=== PATIENT | female | born 1945 | race Caucasian/White ===

== ENCOUNTER 2017-12-03 12:04 | Inpatient (IN) | payer OTHER ==
[2017-12-03] MEDS: IPRATRPIUM/ALBUTEROL 0.5/2.5MG 3 ML NEBU. NEB ×3 (12:15→20:00)
[2017-12-03] MEDS ORDERED: IPRATRPIUM/ALBUTEROL 0.5/2.5MG 3 ML NEBU. (12:21)
[2017-12-03 12:27] LABS: ADD MAN DIFF? NO
[2017-12-03 12:35] LABS: BASO # 0.1 x10^3/uL (0.0-0.2); BASO % 1 % (0-3); EOS # 0.1 x10^3/uL (0.0-0.7); EOS % 1 % (0-3); HEMATOCRIT 50.2 % (36.0-47.0); HEMOGLOBIN 17.1 g/dL (12.0-15.5); LYMPH # 3.6 x10^3/uL (1.0-4.8); LYMPH % 23 % (24-48); MEAN CORPUSCULAR HEMOGLOBIN 33 pg (25-35); MEAN CORPUSCULAR HGB CONC 34 g/dL (31-37); MEAN CORPUSCULAR VOLUME 97 fL (79-100); MONO # 1.1 x10^3/uL (0.0-1.1); MONO % 7 % (0-9); NEUT # 10.7 x10^3uL (1.8-7.7); NEUT % 69 % (31-73); PLATELET COUNT 543 x10^3/uL (140-400); RED BLOOD COUNT 5.17 x10^6/uL (3.50-5.40); RED CELL DISTRIBUTION WIDTH 13.4 % (11.5-14.5); WHITE BLOOD COUNT 15.7 x10^3/uL (4.0-11.0)
[2017-12-03 12:41] LABS: ANION GAP 10 (6-14); BLOOD UREA NITROGEN 8 mg/dL (7-20); CALCIUM 10.3 mg/dL (8.5-10.1); CARBON DIOXIDE 29 mmol/L (21-32); CHLORIDE 97 mmol/L (98-107); CREATININE 0.8 mg/dL (0.6-1.0); GFR 70.9; GLUCOSE 105 mg/dL (70-99); POTASSIUM 4.1 mmol/L (3.5-5.1); SODIUM 136 mmol/L (136-145)
[2017-12-03 12:47] LABS: ALBUMIN 4.2 g/dL (3.4-5.0); ALK PHOS 88 U/L (46-116); ALT (SGPT) 20 U/L (14-59); AST (SGOT) 14 U/L (15-37); DIRECT BILIRUBIN 0.1 mg/dL (0.0-0.2); LIPASE 175 U/L (73-393); TOTAL BILIRUBIN 0.6 mg/dL (0.2-1.0); TOTAL PROTEIN 8.3 g/dL (6.4-8.2)
[2017-12-03 12:49] LABS: TROPONINI < 0.017 ng/mL (0.000-0.055)
[2017-12-03 12:52] LABS: NT-PRO BNP 252 pg/mL (0-124)
[2017-12-03] MEDS: IOHEXOL 300 MG/ML 100ML VIAL. IV (12:56)
[2017-12-03] MEDS ORDERED: CONTRAST GIVEN MC (13:00)
[2017-12-03] MEDS ORDERED: MORPHINE SULFATE 4 MG/ML DISP.SYRIN. IV ×2 (14:00→16:30)
[2017-12-03] MEDS ORDERED: ONDANSETRON PF 4 MG/2 ML VIAL. IV ×2 (14:00→16:30)
[2017-12-03 15:15] LABS: PROTHROMBIN TIME PATIENT 12.4 SEC (11.7-14.0)
[2017-12-03] MEDS: cefTRIAXone IV Push 1 GM VIAL. IVP (16:23)
[2017-12-03] MEDS ORDERED: hydrALAZINE 20 MG/ML VIAL. IVP (16:30)
[2017-12-03] MEDS ORDERED: DOCUSATE SODIUM 100 MG CAPSULE. PO (16:30)
[2017-12-03] MEDS ORDERED: ALBUTEROL SULFATE 2.5 MG/3 ML NEBU. NEB (16:30)
[2017-12-03] MEDS: NICOTINE 14MG PATCH. TD (19:47)
[2017-12-04 05:01] LABS: ADD MAN DIFF? NO
[2017-12-04 05:07] LABS: BASO % 0 % (0-3); EOS # 0.1 x10^3/uL (0.0-0.7); EOS % 1 % (0-3); HEMOGLOBIN 13.8 g/dL (12.0-15.5); LYMPH # 3.9 x10^3/uL (1.0-4.8); LYMPH % 33 % (24-48); MEAN CORPUSCULAR HEMOGLOBIN 33 pg (25-35); MEAN CORPUSCULAR HGB CONC 34 g/dL (31-37); MEAN CORPUSCULAR VOLUME 97 fL (79-100); MONO # 1.1 x10^3/uL (0.0-1.1); MONO % 10 % (0-9); NEUT # 6.5 x10^3uL (1.8-7.7); NEUT % 55 % (31-73); PLATELET COUNT 406 x10^3/uL (140-400); RED BLOOD COUNT 4.22 x10^6/uL (3.50-5.40); RED CELL DISTRIBUTION WIDTH 13.5 % (11.5-14.5); WHITE BLOOD COUNT 11.7 x10^3/uL (4.0-11.0)
[2017-12-04 05:31] LABS: ANION GAP 12 (6-14); BLOOD UREA NITROGEN 11 mg/dL (7-20); CALCIUM 8.6 mg/dL (8.5-10.1); CARBON DIOXIDE 26 mmol/L (21-32); CHLORIDE 102 mmol/L (98-107); CREATININE 0.8 mg/dL (0.6-1.0); GFR 70.9; GLUCOSE 115 mg/dL (70-99); POTASSIUM 3.6 mmol/L (3.5-5.1); SODIUM 140 mmol/L (136-145)
[2017-12-04] MEDS: IPRATRPIUM/ALBUTEROL 0.5/2.5MG 3 ML NEBU. NEB ×2 (08:02→13:00)
[2017-12-04] MEDS: EPINEPHrine 1 MG/ML VIAL ET (13:00)
[2017-12-04] MEDS: IV RINGERS,LACTATED 1000ML 1,000 ML IV (13:15)
[2017-12-04] MEDS ORDERED: PROPOFOL 20 ML IV (13:26)
[2017-12-04] MEDS ORDERED: traMADol 50 MG TABLET PO (16:00)
[2017-12-04] MEDS: ALBUTEROL SULFATE 2.5 MG/3 ML NEBU. NEB ×2 (16:00→20:48)
[2017-12-04] MEDS ORDERED: NON FORMULARY ITEM (Albuterol Sulfate (Ventolin Hfa Inhaler) 2 PUFF) INH (16:00)
[2017-12-04] MEDS: cefTRIAXone IV Push 1 GM VIAL. IVP (17:37)
[2017-12-04] MEDS: busPIRone 5 MG TABLET. PO ×2 (17:37→20:24)
[2017-12-04] MEDS: traMADol 50 MG TABLET PO (17:43)
[2017-12-04] MEDS: NICOTINE 14MG PATCH. TD (20:22)
[2017-12-04] MEDS: LACTOBACILLUS RHAMNOSUS GG 1 CAPSULE. PO (20:23)
[2017-12-05 05:22] LABS: ADD MAN DIFF? NO
[2017-12-05 05:32] LABS: BASO % 0 % (0-3); EOS # 0.2 x10^3/uL (0.0-0.7); EOS % 2 % (0-3); HEMATOCRIT 40.3 % (36.0-47.0); HEMOGLOBIN 13.5 g/dL (12.0-15.5); LYMPH # 4.1 x10^3/uL (1.0-4.8); LYMPH % 33 % (24-48); MEAN CORPUSCULAR HEMOGLOBIN 33 pg (25-35); MEAN CORPUSCULAR HGB CONC 34 g/dL (31-37); MEAN CORPUSCULAR VOLUME 98 fL (79-100); MONO # 1.1 x10^3/uL (0.0-1.1); MONO % 9 % (0-9); NEUT # 7.1 x10^3uL (1.8-7.7); NEUT % 56 % (31-73); PLATELET COUNT 391 x10^3/uL (140-400); RED BLOOD COUNT 4.13 x10^6/uL (3.50-5.40); RED CELL DISTRIBUTION WIDTH 13.5 % (11.5-14.5); WHITE BLOOD COUNT 12.5 x10^3/uL (4.0-11.0)
[2017-12-05 05:58] LABS: ANION GAP 7 (6-14); BLOOD UREA NITROGEN 7 mg/dL (7-20); CALCIUM 8.9 mg/dL (8.5-10.1); CARBON DIOXIDE 30 mmol/L (21-32); CHLORIDE 101 mmol/L (98-107); CREATININE 0.7 mg/dL (0.6-1.0); GFR 82.7; GLUCOSE 101 mg/dL (70-99); POTASSIUM 3.8 mmol/L (3.5-5.1); SODIUM 138 mmol/L (136-145)
[2017-12-05] MEDS: ALBUTEROL SULFATE 2.5 MG/3 ML NEBU. NEB ×5 (06:57→20:00)
[2017-12-05] MEDS: LACTOBACILLUS RHAMNOSUS GG 1 CAPSULE. PO ×2 (08:21→20:10)
[2017-12-05] MEDS: busPIRone 5 MG TABLET. PO ×4 (08:22→20:10)
[2017-12-05] MEDS: traMADol 50 MG TABLET PO ×2 (08:22→17:46)
[2017-12-05] MEDS: ENOXAPARIN 40 MG/0.4 ML SYRINGE. SQ (13:41)
[2017-12-05] MEDS: ACETAMINOPHEN 325 MG TABLET. PO (13:42)
[2017-12-05] MEDS ORDERED: IOHEXOL 300 MG/ML 100ML VIAL. IV (15:00)
[2017-12-05] MEDS ORDERED: CONTRAST GIVEN MC (15:00)
[2017-12-05] MEDS: cefTRIAXone IV Push 1 GM VIAL. IVP (17:46)
[2017-12-06 06:09] LABS: ADD MAN DIFF? NO
[2017-12-06 06:20] LABS: BASO # 0.1 x10^3/uL (0.0-0.2); BASO % 1 % (0-3); EOS # 0.3 x10^3/uL (0.0-0.7); EOS % 2 % (0-3); HEMATOCRIT 39.5 % (36.0-47.0); HEMOGLOBIN 13.3 g/dL (12.0-15.5); LYMPH # 3.4 x10^3/uL (1.0-4.8); LYMPH % 30 % (24-48); MEAN CORPUSCULAR HEMOGLOBIN 33 pg (25-35); MEAN CORPUSCULAR HGB CONC 34 g/dL (31-37); MEAN CORPUSCULAR VOLUME 98 fL (79-100); MONO % 9 % (0-9); NEUT # 6.4 x10^3uL (1.8-7.7); NEUT % 58 % (31-73); PLATELET COUNT 389 x10^3/uL (140-400); RED BLOOD COUNT 4.03 x10^6/uL (3.50-5.40); RED CELL DISTRIBUTION WIDTH 13.7 % (11.5-14.5); WHITE BLOOD COUNT 11.2 x10^3/uL (4.0-11.0)
[2017-12-06] MEDS ORDERED: LIDOCAINE 1% PF 2 ML VIAL. ID ×2 (07:00→07:30)
[2017-12-06] MEDS ORDERED: MORPHINE SULFATE 2 MG/ML DISP.SYRIN. IV (07:00)
[2017-12-06] MEDS ORDERED: ONDANSETRON PF 4 MG/2 ML VIAL. IV (07:00)
[2017-12-06] MEDS ORDERED: PROCHLORPERAZINE 10 MG/2 ML VIAL. IV (07:00)
[2017-12-06] MEDS ORDERED: fentaNYL PF VIAL 100 MCG/2 ML VIAL IV ×4 (07:00→07:30)
[2017-12-06] MEDS ORDERED: IV RINGERS,LACTATED 1000ML 1,000 ML IV (07:27)
[2017-12-06] MEDS ORDERED: MIDAZOLAM HCL/PF 2 MG/2 ML VIAL. IV (07:30)
[2017-12-06] MEDS: ALBUTEROL SULFATE 2.5 MG/3 ML NEBU. NEB ×4 (08:22→19:46)
[2017-12-06] MEDS ORDERED: PROPOFOL 20 ML IV (08:22)
[2017-12-06] MEDS ORDERED: LIDOCAINE 2% 100 MG/5 ML SYRINGE. (08:22)
[2017-12-06] MEDS: IV RINGERS,LACTATED 1000ML 1,000 ML IV (08:27)
[2017-12-06] MEDS: LACTOBACILLUS RHAMNOSUS GG 1 CAPSULE. PO ×2 (09:47→20:59)
[2017-12-06] MEDS: busPIRone 5 MG TABLET. PO ×4 (09:47→21:00)
[2017-12-06] MEDS: NICOTINE 14MG PATCH. TD (11:14)
[2017-12-06] MEDS ORDERED: EPINEPHrine 1 MG/ML VIAL ET (11:45)
[2017-12-06] MEDS: ENOXAPARIN 40 MG/0.4 ML SYRINGE. SQ (13:00)
[2017-12-06] MEDS: traMADol 50 MG TABLET PO (13:12)
[2017-12-06] MEDS: cefTRIAXone IV Push 1 GM VIAL. IVP (16:31)
[2017-12-07 04:38] LABS: ALBUMIN 2.9 g/dL (3.4-5.0); ALBUMIN/GLOBULIN RATIO 0.8 (1.0-1.7); ALK PHOS 87 U/L (46-116); ALT (SGPT) 39 U/L (14-59); ANION GAP 8 (6-14); AST (SGOT) 30 U/L (15-37); BLOOD UREA NITROGEN 9 mg/dL (7-20); BUN/CREATININE RATIO 13 (6-20); CALCIUM 8.7 mg/dL (8.5-10.1); CARBON DIOXIDE 28 mmol/L (21-32); CHLORIDE 102 mmol/L (98-107); CREATININE 0.7 mg/dL (0.6-1.0); GFR 82.7; GLUCOSE 102 mg/dL (70-99); POTASSIUM 3.9 mmol/L (3.5-5.1); SODIUM 138 mmol/L (136-145); TOTAL BILIRUBIN 0.2 mg/dL (0.2-1.0); TOTAL PROTEIN 6.6 g/dL (6.4-8.2)
[2017-12-07] MEDS: ALBUTEROL SULFATE 2.5 MG/3 ML NEBU. NEB ×2 (07:54→11:50)
[2017-12-07] MEDS: LACTOBACILLUS RHAMNOSUS GG 1 CAPSULE. PO (08:51)
[2017-12-07] MEDS: busPIRone 5 MG TABLET. PO ×2 (08:51→12:54)
[2017-12-07] MEDS: traMADol 50 MG TABLET PO (08:54)
[2017-12-07] MEDS: NICOTINE 14MG PATCH. TD (11:59)
[2017-12-07] MEDS: ENOXAPARIN 40 MG/0.4 ML SYRINGE. SQ (13:00)
[2017-12-10 06:26] LABS: T-SPOT TB TEST(OXFORD) SEE SEPARATE REPORT
== END 2017-12-07 16:45 | disposition home health service (06) | DRG 853 ==
LOC: ER 12:04 → 5 NORTH 13:55
PROC: 0B9C8ZX Drainage of Right Upper Lung Lobe, Via Natural or Artificial Opening Endoscopic, Diagnostic (ICD-10-PCS; principal; 2017-12-04 13:35)
PROC: 0BDC8ZX Extraction of Right Upper Lung Lobe, Via Natural or Artificial Opening Endoscopic, Diagnostic (ICD-10-PCS; 2017-12-04 13:35)
DX: A41.9 Sepsis, unspecified organism (principal); J96.01 Acute respiratory failure with hypoxia; J18.9 Pneumonia, unspecified organism; T17.590A Other foreign object in bronchus causing asphyxiation, initial encounter; K50.90 Crohn's disease, unspecified, without complications; J44.0 Chronic obstructive pulmonary disease with (acute) lower respiratory infection; C34.11 Malignant neoplasm of upper lobe, right bronchus or lung; J44.1 Chronic obstructive pulmonary disease with (acute) exacerbation; J93.9 Pneumothorax, unspecified; J98.19 Other pulmonary collapse; J40 Bronchitis, not specified as acute or chronic; F17.210 Nicotine dependence, cigarettes, uncomplicated; Z80.0 Family history of malignant neoplasm of digestive organs; Z82.49 Family history of ischemic heart disease and other diseases of the circulatory system; Z86.73 Personal history of transient ischemic attack (TIA), and cerebral infarction without residual deficits
CPT/HCPCS: 31622; 36415; 70470; 71045; 71260; 80048; 80053; 80076; 83690; 83880; 84484; 85025; 85610; 86481; 88112; 88305; 93005; 94060; 94618; 94640; 94760; 97161-GP; 97165-GO; 99406; J0696; J1650; J2704; J7120; J7613; J7620; Q9967

== ENCOUNTER → 2017-12-13 | Outpatient (CLI) | payer OTHER | END | disposition home or self-care (01) | LOC: PETSC 09:42 | DX: C34.91 Malignant neoplasm of unspecified part of right bronchus or lung (principal); K57.30 Diverticulosis of large intestine without perforation or abscess without bleeding | CPT/HCPCS: 78815; A9552 ==

== ENCOUNTER → 2018-04-04 | Outpatient (CLI) | payer OTHER | END | disposition home or self-care (01) | LOC: CT 09:57 | DX: C34.11 Malignant neoplasm of upper lobe, right bronchus or lung (principal); J44.1 Chronic obstructive pulmonary disease with (acute) exacerbation; Z87.891 Personal history of nicotine dependence | CPT/HCPCS: 71250 ==

== ENCOUNTER → 2018-06-26 | Outpatient (CLI) | payer OTHER ==
[2017-12-07 10:53] VITALS: BP 109/59
[~2018-06-26] MED LIST: BUSP15TA PO; IPRA4AER IH; Nicotine 14MG TD; OMEP40CA5 PO; TRAM50TA PO; VENTOLIN HFA18 GM INH
--- NOTE | 2018-06-26 11:45 | KCIC ---
Bilateral digital screening mammograms: Reason for examination: Routine screening. Comparison is made to previous study dated 06/16/2016. Interpretation was made with the benefit of CAD. The skin and nipples show no abnormalities. No abnormal axillary lymph nodes are seen. The breast parenchyma is heterogeneously dense. (Breast density: Category C.) There are no dominant masses, suspicious calcifications or architectural distortion. Impression: No evidence of malignancy. Recommend routine screening. Your patient's mammogram demonstrates that she has dense breast tissue (breast density category C or D), which could hide abnormalities, and if she has other risk factors for breast cancer that have been identified, she might benefit from supplemental screening tests that may be suggested by you as her ordering physician. Dense breast tissue, in and of itself, is a relatively common condition. Therefore, this information is not provided to cause undue concern, but rather to raise your awareness and to promote discussion with your patient regarding the presence of other risk factors, in addition to dense breast tissue. Your patient's mammography results will be sent to her. BI-RAD Category 1: Negative. "Our facility is accredited by the [employer] Mammography [employer]." This patient's information has been entered into a reminder system for the patient to be notified with the results of her examination and a target date for the next mammogram. Electronically signed by: Ann-Marie Batista MD (06/26/2018 11:41 AM) [id number]
--- NOTE | 2018-06-26 13:01 | KCIC ---
Examination: PELVIS W/TV History: Weight loss, lung cancer Comparison/Correlation: None Findings: Transabdominal and transvaginal pelvic ultrasound exam was performed. Transvaginal technique was utilized to better assess the adnexal structures. Uterus measures 6.3 cm x 3.7 cm x 2.4 cm. Endometrial thickness is 0.6 cm. Myometrium is normal. Fluid is noted within the endometrial cavity measuring 0.5 cm x 2 cm x 2 cm. There is no pelvic free fluid. Ovaries are not identified. Impression: Fluid within the endometrial cavity is present. No mass delineated. No adnexal mass. Ovaries are not identified and are presumably atrophic. Electronically signed by: Ronan De León MD (06/26/2018 12:58 PM) [facility]
--- NOTE | 2018-06-26 13:33 | KCIC ---
Complete abdominal ultrasound History: Weight loss. Abdominal pain. Lung cancer. Comparison: None. Procedure: Transabdominal ultrasound images are obtained. Findings: Visualized pancreas is unremarkable. Liver is normal in echogenicity. No focal hepatic masses are identified. Right lobe of the liver measures 15.3 cm. Gallbladder has an unremarkable appearance. Common bile duct measures normally at 2 mm in diameter. Spleen is homogeneous and measures 8.1 cm in length. Right kidney is normal in size and configuration without hydronephrosis. Junction of the superior pole and interpolar region of the right kidney demonstrates 9 mm echogenic focus. Left kidney is normal in size and configuration without hydronephrosis. Visualized portions of the aorta and IVC have normal caliber. Aortic atherosclerosis is seen. Impression: 1. Right kidney demonstrates 9 mm echogenic lesion involving the cortex. This is nonspecific, but is commonly due to angiomyolipoma. Malignant causes are not excluded. Consider renal mass protocol CT for further evaluation. Electronically signed by: Augustus Garza MD (06/26/2018 1:29 PM) [id number]
--- NOTE | 2018-06-26 15:49 | KCIC ---
Examination: THYROID ULTRASOUND History: Enlarged thyroid, lung cancer, history of radiation Comparison/Correlation: None Findings: Right thyroid lobe measures 6.1 cm and 1.17 x 1.7 cm. Left thyroid lobe measures 5.2 cm x 1.6 cm x 1.6 cm. Thyroid isthmus measures 0.3 cm anteroposterior The left superior pole medially, there is a 0.4 cm diameter cysts. Symmetric flow involving the thyroid gland is noted on color Doppler imaging. Slight heterogeneity of the thyroid gland is suggested. No well-demarcated dominant nodule or mass identified. Impression: No dominant mass. Electronically signed by: Ronan De León MD (06/26/2018 3:45 PM) [facility]
== END | disposition home or self-care (01) ==
LOC: KCIC US 08:40
PROVIDERS: ATTEND Nurse Practitioner
DX: Z12.31 Encounter for screening mammogram for malignant neoplasm of breast (principal); I70.0 Atherosclerosis of aorta; N28.9 Disorder of kidney and ureter, unspecified; J44.9 Chronic obstructive pulmonary disease, unspecified; Z92.3 Personal history of irradiation; Z87.891 Personal history of nicotine dependence; Z85.118 Personal history of other malignant neoplasm of bronchus and lung
CPT/HCPCS: 76536; 76700; 76830; 76856; 77067

== ENCOUNTER → 2018-07-09 | Outpatient (CLI) | payer OTHER ==
[2017-12-07 10:53] VITALS: BP 109/59
[~2018-07-09] MED LIST changes: +CHOL2000 PO; +IOHEXOL 300 MG/ML 100ML VIAL. IV ONE
--- NOTE | 2018-07-09 15:08 | RAD ---
PQRS Compliance Statement: One or more of the following individualized dose reduction techniques were utilized for this examination: 1. Automated exposure control 2. Adjustment of the mA and/or kV according to patient size 3. Use of iterative reconstruction technique CT CHEST W/CONTRAST Clinical Indication: HX OF LUNG cancer. Comparison: CT chest without contrast, April 04, 2018. Technique: Helical CT imaging of the chest is performed after 75 cc Omnipaque 300 IV contrast. Findings: Thyroid is symmetric. No adenopathy in the chest. Stable ectasia of the ascending thoracic aorta. Coronary artery disease. Cardiac size normal. No pericardial effusion. No pleural effusion. Abrupt truncation of the right upper lobe bronchus is unchanged. Right upper lobe consolidation is unchanged. Mild scarring in the left lung apex is unchanged. Retained secretions or mucous in the trachea dependently. Posterior left upper lobe groundglass nodule is stable, image 26. Visualized upper abdomen is stable. Bones are stable. IMPRESSION: There is unchanged truncation of the right upper lobe bronchus. Consolidation in the right upper lobe is unchanged, probably postobstructive atelectasis or pneumonia. Electronically signed by: Hans Borja MD (07/09/2018 3:06 PM) [id number]
== END | disposition home or self-care (01) ==
LOC: CT 09:40
PROVIDERS: ATTEND Radiology Radiation Oncology
DX: I77.810 Thoracic aortic ectasia (principal); I25.10 Atherosclerotic heart disease of native coronary artery without angina pectoris; J44.9 Chronic obstructive pulmonary disease, unspecified; Z79.01 Long term (current) use of anticoagulants; Z87.891 Personal history of nicotine dependence; Z85.118 Personal history of other malignant neoplasm of bronchus and lung
CPT/HCPCS: 71260; Q9967

== ENCOUNTER → 2018-10-16 | Outpatient (CLI) | payer OTHER ==
[2017-12-07 10:53] VITALS: BP 109/59
[~2018-10-16] MED LIST changes: +DIAZ5TAB PO; +PRED20TA PO
[2018-10-16 12:56] LABS: CREATININE 0.8 mg/dL (0.6-1.0); GFR 70.9
--- NOTE | 2018-10-16 15:31 | RAD ---
CT of the chest with contrast 10/16/2018 INDICATION: History of lung cancer. COMPARISON STUDY: CT of the chest July 09, 2018. PET/CT December 13, 2017. TECHNIQUE: Multidetector CT imaging of the chest was performed following the administration of IV contrast. Findings heart size is normal. No pathologically enlarged mediastinal adenopathy is appreciated. Abrupt truncation of the bronchus to the right upper lobe is unchanged. Right upper lobe postobstructive atelectasis is essentially unchanged in morphology. Linear areas of scarring are seen in the bilateral upper lungs. No pneumothorax or pleural effusion is seen. Smudgy groundglass nodule in the left upper lobe along the fissure is unchanged measuring approximately 7 mm in diameter. No new focal consolidative infiltrate is seen. No new pulmonary nodules or masses are identified. Limited visualization of the upper abdomen demonstrates no acute abnormalities. No acute osseous changes are seen. IMPRESSION: 1. Stable CT appearance of the chest. 2 . With respect to comparison study there is stable morphology of the right upper lobe including abrupt truncation of the upper lobe bronchus with postobstructive volume loss. Notably, differentiation of the previously seen hypermetabolic mass in the right hilum, and atelectatic lung may not be possible on the basis of this exam. PET/CT may be helpful for further evaluation as clinically indicated. 3. Stable 7 mm groundglass opacity, left upper lobe CT DOSING PQRS STATEMENT: One or more of the following individualized dose reduction techniques were utilized for this examination: 1. Automated exposure control 2. Adjustment of the mA and/or kV according to patient size 3. Use of iterative reconstruction technique Electronically signed by: Derek Batista MD (10/16/2018 3:27 PM) [id number]
== END | disposition home or self-care (01) ==
LOC: CT 15:19
PROVIDERS: ATTEND Radiology Radiation Oncology
DX: C34.11 Malignant neoplasm of upper lobe, right bronchus or lung (principal); J98.11 Atelectasis; J98.4 Other disorders of lung
CPT/HCPCS: 36415; 71260; 82565; Q9967

== ENCOUNTER 2019-01-08 04:40 | Emergency (ER) | payer OTHER ==
[~2019-01-08] VITALS: Ht 165.1 cm; Wt 43.1 kg
[~2019-01-08 04:40] MED LIST changes: -IOHEXOL 300 MG/ML 100ML VIAL. IV ONE; -PRED20TA PO
--- NOTE | 2019-01-08 04:58 | PHYS DOC ---
Past Medical History Past Medical History: COPD, Other Additional Past Medical Histor: Crohns (BLANCA PRATHER DO) Past Surgical History: No Surgical History (BLANCA PRATHER DO) Alcohol Use: Occasionally Drug Use: None (BLANCA PRATHER DO) Adult General Chief Complaint Chief Complaint: DIFFICULTY SWALLOWING HPI HPI 73-year-old female presents with the inability to swallow. She states this started after eating some small barbosa tomatoes today. She did not aspirate has not been short of breath did not cough. Currently, she is having difficulty tolerating her own saliva. She denies any pain in her chest.[] (BLANCA PRATHER DO) Review of Systems Review of Systems Constitutional: Denies fever or chills [] Eyes: Denies change in visual acuity, redness, or eye pain [] HENT: Denies nasal congestion or sore throat [] Respiratory: Denies cough or shortness of breath [] Cardiovascular: No additional information not addressed in HPI [] GI: Denies abdominal pain, nausea, vomiting, bloody stools or diarrhea, reports dysphagia [] : Denies dysuria or hematuria [] Musculoskeletal: Denies back pain or joint pain [] Integument: Denies rash or skin lesions [] Neurologic: Denies headache, focal weakness or sensory changes [] Endocrine: Denies polyuria or polydipsia [] All other systems were reviewed and found to be within normal limits, except as documented in this note. (BLANCA PRATHER DO) Current Medications Current Medications Current Medications Medications (Trade) Dose Ordered Sig/Yadiel Start Time Stop Time Status Last Admin Dose Admin Glucagon (Glucagen) 1 mg 1X ONCE 01/08/19 05:15 01/08/19 05:17 DC 01/08/19 05:11 1 MG Sodium Chloride 1,000 ml @ 1,000 mls/hr 1X ONCE 01/08/19 05:00 01/08/19 05:59 DC 01/08/19 05:10 1,000 MLS/HR (POLINA RHODES MD) Allergies Allergies Allergies Coded Allergies Type Severity Reaction Last Updated Verified tomato Allergy Severe 01/08/19 Yes Penicillins Allergy Intermediate Unknown 01/08/19 Yes (POLINA RHODES MD) Physical Exam Physical Exam Constitutional: Frail, elderly, acutely ill[] HENT: Normocephalic, atraumatic, bilateral external ears normal, oropharynx moist, no oral exudates, nose normal. [] Eyes: PERRLA, EOMI, conjunctiva normal, no discharge. [] Neck: Normal range of motion, no tenderness, supple, no stridor. [] Cardiovascular:Heart rate regular rhythm, no murmur [] Lungs & Thorax: Bilateral breath sounds clear to auscultation [] Abdomen: Bowel sounds normal, soft, no tenderness, no masses, no pulsatile masses. [] Skin: Warm, dry, no erythema, no rash. [] Back: No tenderness, no CVA tenderness. [] Extremities: No tenderness, no cyanosis, no clubbing, ROM intact, no edema. [] Neurologic: Alert and oriented X 3, normal motor function, normal sensory function, no focal deficits noted. [] Psychologic: Anxious. [] (BLANCA PRATHER DO) Current Patient Data Vital Signs Vital Signs Date Time Temp Pulse Resp B/P (MAP) Pulse Ox O2 Delivery O2 Flow Rate FiO2 01/08/19 05:50 64 16 131/70 (90) 97 Room Air 01/08/19 04:42 97.6 97.6 (POLINA RHODES MD) Lab Values Laboratory Tests Test 01/08/19 05:00 White Blood Count 11.9 x10^3/uL (4.0-11.0) H Red Blood Count 4.57 x10^6/uL (3.50-5.40) Hemoglobin 15.0 g/dL (12.0-15.5) Hematocrit 44.2 % (36.0-47.0) Mean Corpuscular Volume 97 fL (79-100) Mean Corpuscular Hemoglobin 33 pg (25-35) Mean Corpuscular Hemoglobin Concent 34 g/dL (31-37) Red Cell Distribution Width 14.2 % (11.5-14.5) Platelet Count 406 x10^3/uL (140-400) H Neutrophils (%) (Auto) 85 % (31-73) H Lymphocytes (%) (Auto) 9 % (24-48) L Monocytes (%) (Auto) 5 % (0-9) Eosinophils (%) (Auto) 1 % (0-3) Basophils (%) (Auto) 1 % (0-3) Neutrophils # (Auto) 10.0 x10^3uL (1.8-7.7) H Lymphocytes # (Auto) 1.0 x10^3/uL (1.0-4.8) Monocytes # (Auto) 0.6 x10^3/uL (0.0-1.1) Eosinophils # (Auto) 0.1 x10^3/uL (0.0-0.7) Basophils # (Auto) 0.1 x10^3/uL (0.0-0.2) Sodium Level 141 mmol/L (136-145) Potassium Level 3.6 mmol/L (3.5-5.1) Chloride Level 100 mmol/L (98-107) Carbon Dioxide Level 27 mmol/L (21-32) Anion Gap 14 (6-14) Blood Urea Nitrogen 5 mg/dL (7-20) L Creatinine 0.8 mg/dL (0.6-1.0) Estimated GFR (Cockcroft-Gault) 70.7 BUN/Creatinine Ratio 6 (6-20) Glucose Level 117 mg/dL (70-99) H Calcium Level 9.3 mg/dL (8.5-10.1) Total Bilirubin 0.4 mg/dL (0.2-1.0) Aspartate Amino Transferase (AST) 17 U/L (15-37) Alanine Aminotransferase (ALT) 15 U/L (14-59) Alkaline Phosphatase 78 U/L (46-116) Total Protein 8.2 g/dL (6.4-8.2) Albumin 4.3 g/dL (3.4-5.0) Albumin/Globulin Ratio 1.1 (1.0-1.7) Laboratory Tests 01/08/19 05:00 Laboratory Tests 01/08/19 05:00 (POLINA RHODES MD) Lab Values Laboratory Tests Test 01/08/19 05:00 White Blood Count 11.9 x10^3/uL (4.0-11.0) H Red Blood Count 4.57 x10^6/uL (3.50-5.40) Hemoglobin 15.0 g/dL (12.0-15.5) Hematocrit 44.2 % (36.0-47.0) Mean Corpuscular Volume 97 fL (79-100) Mean Corpuscular Hemoglobin 33 pg (25-35) Mean Corpuscular Hemoglobin Concent 34 g/dL (31-37) Red Cell Distribution Width 14.2 % (11.5-14.5) Platelet Count 406 x10^3/uL (140-400) H Neutrophils (%) (Auto) 85 % (31-73) H Lymphocytes (%) (Auto) 9 % (24-48) L Monocytes (%) (Auto) 5 % (0-9) Eosinophils (%) (Auto) 1 % (0-3) Basophils (%) (Auto) 1 % (0-3) Neutrophils # (Auto) 10.0 x10^3uL (1.8-7.7) H Lymphocytes # (Auto) 1.0 x10^3/uL (1.0-4.8) Monocytes # (Auto) 0.6 x10^3/uL (0.0-1.1) Eosinophils # (Auto) 0.1 x10^3/uL (0.0-0.7) Basophils # (Auto) 0.1 x10^3/uL (0.0-0.2) Sodium Level 141 mmol/L (136-145) Potassium Level 3.6 mmol/L (3.5-5.1) Chloride Level 100 mmol/L (98-107) Carbon Dioxide Level 27 mmol/L (21-32) Anion Gap 14 (6-14) Blood Urea Nitrogen 5 mg/dL (7-20) L Creatinine 0.8 mg/dL (0.6-1.0) Estimated GFR (Cockcroft-Gault) 70.7 BUN/Creatinine Ratio 6 (6-20) Glucose Level 117 mg/dL (70-99) H Calcium Level 9.3 mg/dL (8.5-10.1) Total Bilirubin 0.4 mg/dL (0.2-1.0) Aspartate Amino Transferase (AST) 17 U/L (15-37) Alanine Aminotransferase (ALT) 15 U/L (14-59) Alkaline Phosphatase 78 U/L (46-116) Total Protein 8.2 g/dL (6.4-8.2) Albumin 4.3 g/dL (3.4-5.0) Albumin/Globulin Ratio 1.1 (1.0-1.7) Laboratory Tests 01/08/19 05:00 Laboratory Tests 01/08/19 05:00 (BLANCA PRATHER DO) EKG EKG [] (BLANCA PRATHER DO) Radiology/Procedures Radiology/Procedures [] (BLANCA PRATHER DO) Course & Med Decision Making Course & Med Decision Making Pertinent Labs and Imaging studies reviewed. (See chart for details) [ED course: I spoke with Dr. Ford at 05 45 this morning and informed him of details of the case. He states that he began approximately 7 AM and take her to the GI lab. I will let Dr. Rhodes the [facility] emergency medicine physician know the details so she can keep track of the patient up until the time she goes to the GI lab.] (BLANCA PRATHER DO) Course & Med Decision Making I was not involved in the care of this patient. Patient was taking to GI lab.Dr rhodes (POLINA RHODES MD) Dragon Disclaimer Dragon Disclaimer This electronic medical record was generated, in whole or in part, using a voice recognition dictation system. (BLANCA PRATHER DO) Departure Departure Referrals: CAYETANO SHABAZZ DO (PCP) BLANCA PRATHER DO Jan 08, 2019 04:58 POLINA RHODES MD Jan 08, 2019 17:38
[2019-01-08] MEDS ORDERED: IV NORMAL SALINE 1000ML BAG 1,000 ML IV ONE (05:00)
[2019-01-08 05:10] LABS: BASO # 0.1 x10^3/uL (0.0-0.2); BASO % 1 % (0-3); EOS # 0.1 x10^3/uL (0.0-0.7); EOS % 1 % (0-3); HEMATOCRIT 44.2 % (36.0-47.0); LYMPH % 9 % (24-48); MEAN CORPUSCULAR HEMOGLOBIN 33 pg (25-35); MEAN CORPUSCULAR HGB CONC 34 g/dL (31-37); MEAN CORPUSCULAR VOLUME 97 fL (79-100); MONO # 0.6 x10^3/uL (0.0-1.1); MONO % 5 % (0-9); NEUT % 85 % (31-73); PLATELET COUNT 406 x10^3/uL (140-400); RED BLOOD COUNT 4.57 x10^6/uL (3.50-5.40); RED CELL DISTRIBUTION WIDTH 14.2 % (11.5-14.5); WHITE BLOOD COUNT 11.9 x10^3/uL (4.0-11.0)
[2019-01-08] MEDS ORDERED: GLUCAGON,HUMAN RECOMBINANT 1 MG/ML VIAL. IV ONE (05:15)
[2019-01-08 05:21] LABS: CALCIUM 9.3 mg/dL (8.5-10.1); CREATININE 0.8 mg/dL (0.6-1.0); GFR 70.7; POTASSIUM 3.6 mmol/L (3.5-5.1)
[2019-01-08 05:29] LABS: ALBUMIN 4.3 g/dL (3.4-5.0); ALBUMIN/GLOBULIN RATIO 1.1 (1.0-1.7); TOTAL BILIRUBIN 0.4 mg/dL (0.2-1.0); TOTAL PROTEIN 8.2 g/dL (6.4-8.2)
[2019-01-08 05:50] VITALS: BP 131/70
--- NOTE | 2019-01-08 08:01 | RAD ---
CHEST PA LATERAL History: difficulty swallowing Comparison: 12/03/2017 AP view of the chest, 10/16/2018 CT chest with contrast. Findings: The cardiomediastinal silhouette is normal. Pulmonary hyperinflation noted. Pulmonary vasculature is normal. Right medial upper lung field opacity corresponding to atelectasis on the recent chest CT noted. No pleural effusion or pneumothorax is seen. There is no acute bone abnormality. Osteopenia noted. IMPRESSION: Slight decrease in right upper lobe, apical atelectasis upon correlation with recent CT examination. COPD. No new infiltrate. Electronically signed by: Ronan De León MD (01/08/2019 7:59 AM) [facility]
[2019-01-10] MEDS ORDERED: PRED20TA PO (12:29)
== END 2019-01-08 06:20 | disposition home or self-care (01) ==
LOC: ER 04:40
DX: R13.0 Aphagia (principal); J44.9 Chronic obstructive pulmonary disease, unspecified; Z88.0 Allergy status to penicillin; Z91.018 Allergy to other foods
CPT/HCPCS: 36415; 71046; 80053; 85025; 96374; J1610; J7030; 99284-25

== ENCOUNTER 2019-01-08 06:30 | Inpatient (IN) | payer OTHER ==
[~2019-01-08] VITALS: Ht 165.1 cm; Wt 43.1 kg
[2019-01-08] MEDS ORDERED: LIDOCAINE 1% PF 2 ML VIAL. ID PRN (06:45)
[2019-01-08] MEDS ORDERED: IV RINGERS,LACTATED 1000ML 1,000 ML IV SCH (06:45)
[2019-01-08] MEDS ORDERED: fentaNYL PF VIAL 100 MCG/2 ML VIAL IV PRN ×2 (06:45)
[2019-01-08] MEDS ORDERED: MIDAZOLAM HCL/PF 2 MG/2 ML VIAL. IV PRN (06:45)
[2019-01-08] MEDS ORDERED: LIDOCAINE 2% PF 5 ML VIAL. ONE (06:57)
[2019-01-08] MEDS ORDERED: PROPOFOL 20 ML IV ONE (06:57)
[2019-01-08] MEDS ORDERED: diphenhydrAMINE 50 MG/ML VIAL IVP ONE (08:30)
[2019-01-08] MEDS: FAMOTIDINE 20 MG/2 ML VIAL IVP SCH ×2 (08:30→09:27)
[2019-01-08] MEDS: methylPREDNISolone SOD SUCC PF 125 MG/2 ML VIAL. IV SCH ×4 (08:30→17:15)
[2019-01-08] MEDS: IV NORMAL SALINE 1000ML BAG 1,000 ML IV SCH ×2 (08:38→17:16)
--- NOTE | 2019-01-08 10:20 | PDOC1 ---
History and Physical Date of Admission Date of Admission DATE: 01/08/19 TIME: 10:15 Identification/Chief Complaint Chief Complaint SEEN IN ER FOR new onset throat swelling, fullness ,73-year-old female presented with the inability to swallow. She states this started after eating some small barbosa tomatoes at 4 pm on 01-07 She obtained the tomato from a food- bank , her loer lip was swollen , She did not aspirate has not been short of breath did not cough. she was having difficulty tolerating her own saliva. She underwent an egd today 01/08 , no fb seen, vocal cords were edematous, there was concern for acute angioedema present, therefore admitted Past Medical History Past Medical History Past Medical History Past Medical History: COPD, Other Additional Past Medical Histor: Crohns Past Surgical History: No Surgical History Alcohol Use: Occasionally Drug Use: None family hx COPD Pulmonary: COPD GI: No pertinent hx Musculoskeletal: Osteoarthritis Rheumatologic: No pertinent hx Dermatology: No pertinent hx Past Surgical History Past Surgical History: No pertinent history Family History Family History: Hypertension Social History Smoke: Quit ALCOHOL: none Drugs: None Current Medications Current Medications Current Medications Midazolam HCl (Versed) 2 mg PRN 1X PRN IV PRIOR TO PROCEDURE; Start 01/08/19 at 06:45; Stop 01/09/19 at 06:44 Fentanyl Citrate (Fentanyl 2ml Vial) 25 mcg PRN Q5MIN PRN IV X 2 DOSES FOR PAIN ; Start 01/08/19 at 06:45; Stop 01/09/19 at 06:44 Fentanyl Citrate (Fentanyl 2ml Vial) 50 mcg PRN Q5MIN PRN IV X 2 DOSES FOR PAIN ; Start 01/08/19 at 06:45; Stop 01/09/19 at 06:44 Ringer's Solution 1,000 ml @ 125 mls/hr Q8H IV Last administered on 01/08/19at 06:57; Start 01/08/19 at 06:45; Stop 01/08/19 at 06:46; Status DC Lidocaine HCl (Xylocaine-Mpf 1% 2ml Vial) 2 ml 1X PRN PRN ID IV START; Start at 06:45; Stop 01/09/19 at 06:44 Propofol 20 ml @ As Directed STK-MED ONCE IV ; Start 01/08/19 at 06:57; Stop 07/19 at 06:58; Status DC Lidocaine HCl (Lidocaine Pf 2% Vial) 5 ml STK-MED ONCE .ROUTE ; Start 01/08/19 at 06:57; Stop 01/08/19 at 06:58; Status DC Methylprednisolone Sodium Succinate (SOLU-Medrol 125MG VIAL) 125 mg Q6HRS IV Last administered on 01/08/19at 09:46; Start 01/08/19 at 08:30 Diphenhydramine HCl (Benadryl) 50 mg 1X ONCE IVP Last administered on at 08:38; Start 01/08/19 at 08:30; Stop 01/08/19 at 08:31; Status DC Sodium Chloride 1,000 ml @ 100 mls/hr Q10H IV Last administered on 01/08/19at 08:38; Start 01/08/19 at 09:00 Famotidine (Pepcid Vial) 20 mg BID IVP Last administered on 01/08/19at 09:27; Start 01/08/19 at 08:30 Active Scripts Active Combivent Respimat Inhal (Ipratropium/Albuterol Sulfate) 4 Gm Aer.w.adap 1 Inh IH QID Reported Valium (Diazepam) 5 Mg Tablet 5 Mg PO HS Vitamin D (Cholecalciferol (Vitamin D3)) 2,000 Unit Capsule 2,000 Unit PO DAILY Tramadol Hcl 50 Mg Tablet 1 Tab PO PRN Q6HRS Allergies Allergies: Coded Allergies: Penicillins (Verified Allergy, Intermediate, Unknown, 01/08/19) ROS Review of System Review of Systems Review of Systems Constitutional: Denies fever or chills [] Eyes: Denies change in visual acuity, redness, or eye pain [] HENT: Denies nasal congestion or sore throat [] Respiratory: Denies cough or shortness of breath [] Cardiovascular: No additional information not addressed in HPI [] GI: Denies abdominal pain, nausea, vomiting, bloody stools or diarrhea, reports pos dysphagia [] : Denies dysuria or hematuria [] Musculoskeletal: Denies back pain or joint pain [] Integument: Denies rash or skin lesions [] Neurologic: Denies headache, focal weakness or sensory changes [] Endocrine: Denies polyuria or polydipsia [] 14 pt systems were reviewed and found to be within normal limits, except as documented Physical Exam Physical Exam Physical Exam Physical Exam Constitutional: Frail, elderly, acutely ill[] HENT: Normocephalic, atraumatic, bilateral external ears normal, oropharynx moist, no oral exudates, nose normal. [] Eyes: PERRLA, EOMI, conjunctiva normal, no discharge. [] Neck: Normal range of motion, no tenderness, supple, no stridor. [] Cardiovascular:Heart rate regular rhythm, no murmur [] Lungs & Thorax: Bilateral breath sounds clear to auscultation [] Abdomen: Bowel sounds normal, soft, no tenderness, no masses, no pulsatile masses. [] Skin: Warm, dry, no erythema, no rash. [] Back: No tenderness, no CVA tenderness. [] Extremities: No tenderness, no cyanosis, no clubbing, ROM intact, no edema. [] Neurologic: Alert and oriented X 3, normal motor function, normal sensory function, no focal deficits noted. [] Psychologic: Anxious. [] Vitals Vitals Vital Signs Date Time Temp Pulse Resp B/P (MAP) Pulse Ox O2 Delivery O2 Flow Rate FiO2 01/08/19 07:53 62 18 112/55 98 Room Air 01/08/19 07:38 2 01/08/19 07:08 97.6 97.6 Images Images REASON: PROCEDURE: PET W CT SKULL TO MIDTHIGH FDG tumor localization scan, PET/CT, 12/13/2017: History: Lung cancer staging Following IV injection of 11.6 mCi of 18 F-FDG, imaging was performed from the skull base to the proximal thighs. The noncontrast CT component was performed for attenuation correction and anatomic localization purposes rather than for primary diagnosis. The patient's blood glucose level at the time of injection was 94 MG/DL. The CT component again demonstrates right upper lobe atelectasis/consolidation. Centrally within this process abutting the stump of the right upper lobe bronchus there is an oval-shaped hypermetabolic process measure approximately 4 cm in diameter. It demonstrates a maximum SUV of 17. Peripheral to this level the remainder of the right upper lobe demonstrates mildly increased FDG uptake. The findings indicate a centrally obstructing malignancy with postobstructive atelectasis/pneumonitis. No separate mediastinal adenopathy is seen. No other hypermetabolic pulmonary lesion is identified. Physiologic activity is evident in the neck. No cervical adenopathy is evident. There is moderately increased activity related to the upper cervical spine on the right at the level of an arthritic facet joint. Normal GI tract and urinary tract activity is present in the abdomen or pelvis. No hypermetabolic abdominal or pelvic lesion is seen. Incidental CT findings include the presence of moderate colonic diverticulosis. There is moderate calcific plaquing of the aorta and its branches including the coronary arteries. IMPRESSION: 1. Hypermetabolic right hilar mass compatible with a primary lung malignancy. 2. No PET evidence of metastatic disease. DICTATED and SIGNED BY: JERROD CARROLL MD DATE: 12/13/[address] of the chest with contrast 10/16/2018 INDICATION: History of lung cancer. COMPARISON STUDY: CT of the chest July 09, 2018. PET/CT December 13, 2017. TECHNIQUE: Multidetector CT imaging of the chest was performed following the administration of IV contrast. Findings heart size is normal. No pathologically enlarged mediastinal adenopathy is appreciated. Abrupt truncation of the bronchus to the right upper lobe is unchanged. Right upper lobe postobstructive atelectasis is essentially unchanged in morphology. Linear areas of scarring are seen in the bilateral upper lungs. No pneumothorax or pleural effusion is seen. Smudgy groundglass nodule in the left upper lobe along the fissure is unchanged measuring approximately 7 mm in diameter. No new focal consolidative infiltrate is seen. No new pulmonary nodules or masses are identified. Limited visualization of the upper abdomen demonstrates no acute abnormalities. No acute osseous changes are seen. IMPRESSION: 1. Stable CT appearance of the chest. 2 . With respect to comparison study there is stable morphology of the right upper lobe including abrupt truncation of the upper lobe bronchus with postobstructive volume loss. Notably, differentiation of the previously seen hypermetabolic mass in the right hilum, and atelectatic lung may not be possible on the basis of this exam. PET/CT may be helpful for further evaluation as clinically indicated. 3. Stable 7 mm groundglass opacity, left upper lobe CT DOSING PQRS STATEMENT: One or more of the following individualized dose reduction techniques were utilized for this examination: 1. Automated exposure control 2. Adjustment of the mA and/or kV according to patient size 3. Use of iterative reconstruction technique Electronically signed by: Derek Marte MD (10/16/2018 3:27 PM) [facility] DICTATED and SIGNED BY: DEREK MARTE MD DATE: 10/16/18 1519 CHEST PA LATERAL History: difficulty swallowing Comparison: 12/03/2017 AP view of the chest, 10/16/2018 CT chest with contrast. Findings: The cardiomediastinal silhouette is normal. Pulmonary hyperinflation noted. Pulmonary vasculature is normal. Right medial upper lung field opacity corresponding to atelectasis on the recent chest CT noted. No pleural effusion or pneumothorax is seen. There is no acute bone abnormality. Osteopenia noted. IMPRESSION: Slight decrease in right upper lobe, apical atelectasis upon correlation with recent CT examination. COPD. No new infiltrate. Electronically signed by: Ronan De León MD (01/08/2019 7:59 AM) [facility] VTE Prophylaxis Ordered VTE Prophylaxis Devices: Yes VTE Pharmacological Prophylaxi: No Assessment/Plan Assessment/Plan impression acute angioedema ? food related? tramadol rt upper lobe likely primary lung Ca Hypermetabolic right hilar mass compatible with a primary lung malignancy PET scan 2017 copd bronchitis, chronic tobaccoism h/o crohns dz? iv solumedrol 125 MG Q 6 HRS iv pepsid 20mg bid stop tramadol iv benadryl 50 mg x 1 dvt prophylaxis consult pulmonary admit 2 MN avoid nuts, tomatoes, food dyes, shellfish, keep food diary, MAY NEED clerical office referral as outpt angioedema is potentially life-threatening, left untreated, agree with admit 73 min pt exam, chart review, > 50% of time with exam, chart review, pt care coordination ABILIO GONZALEZ MD Jan 08, 2019 10:20
[2019-01-08 11:00] VITALS: BP 119/58
[2019-01-08] MEDS ORDERED: NON FORMULARY ITEM (Ipratropium/Albuterol Sulfate (Combivent Respimat Inhal) 1 INH) IH SCH (13:00)
[2019-01-08] MEDS ORDERED: diphenhydrAMINE 50 MG/ML VIAL IVP PRN (13:45)
[2019-01-08] MEDS ORDERED: IPRATRPIUM/ALBUTEROL 0.5/2.5MG 3 ML NEBU. NEB SCH (13:45)
[2019-01-08] MEDS ORDERED: SODIUM PHOSPHATES 19/7GM 133 ML ENEMA. PR PRN (13:45)
[2019-01-08] MEDS ORDERED: LORazepam 0.5 MG TABLET PO PRN (13:45)
[2019-01-08] MEDS ORDERED: guaiFENesin ORAL 200 MG/10 ML LIQUID. PO PRN (13:45)
[2019-01-08] MEDS ORDERED: DOCUSATE SODIUM 100 MG CAPSULE. PO PRN (13:45)
[2019-01-08] MEDS ORDERED: MAG HYDROX/ALUMINUM HYD/SIMETH 30 ML ORAL.SUSP PO PRN (13:45)
[2019-01-08] MEDS ORDERED: cloNIDine HCL 0.1 MG TABLET PO PRN (13:45)
[2019-01-08] MEDS ORDERED: ACETAMINOPHEN 325 MG TABLET. PO PRN (13:45)
[2019-01-08] MEDS: CHOLECALCIFEROL (VITAMIN D3) 1,000 UNIT TABLET PO SCH (14:00)
[2019-01-08] MEDS ORDERED: ENOXAPARIN 40 MG/0.4 ML SYRINGE. SQ SCH (14:00)
--- NOTE | 2019-01-08 14:56 | CONS ---
DATE OF CONSULTATION: ATTENDING PHYSICIAN: Dr. Damian. REASON FOR CONSULTATION: Dyspnea and inability to swallow, history of lung cancer. 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 She underwent radiation treatment. She was brought into the hospital as she was eating tuna salad and she felt like the food was stuck in the back of her throat. Her son saw and he saw some food particles. As a result, she was brought into the Emergency Room. The patient underwent EGD earlier today and no foreign body seen. Vocal cords were slightly edematous, as a result, I have been asked to see her for further evaluation. She feels better, she can swallow now and she states that the throat swelling is improving. She continues to smoke cigarettes. Denies any headaches, nausea or vomiting. No diarrhea, no dysuria, no focal weakness. PAST MEDICAL HISTORY: Significant for history of stage IB T2 N0 M0 squamous cell carcinoma of the right upper lobe, presenting as collapse of the right upper lobe. History of COPD with ongoing tobaccoism. History of Crohn's. PAST SURGICAL HISTORY: None. ALLERGIES: PENICILLIN and TOMATO. MEDICATIONS: Reviewed, as listed in the MRAD. This also includes DuoNebs and Solu-Medrol. REVIEW OF SYSTEMS: Twelve-point system obtained. Pertinent positives discussed in my history of present illness, otherwise noncontributory. All systems that were negative were reviewed as well. SOCIAL HISTORY: Smoker for 55 years, still smoking half pack a day. PHYSICAL EXAMINATION: VITAL SIGNS: Reviewed. Stable. Pulse ox 95% on room air. HEENT: Oropharynx shows no obvious food particles. NECK: Supple. LUNGS: Clear. CARDIOVASCULAR: Regular rate. ABDOMEN: Soft, nontender. EXTREMITIES: With no pitting edema. LABORATORY DATA: No labs were available for today. Chest x-ray showed chronic collapse of the right upper lobe, mildly decreased. IMPRESSION: 1. The patient with food impaction, status post eating tuna salad. Status post EGD with no foreign body seen. She is clinically much better. She had mild edema of the vocal cords noted, as a result she is kept for observation. No obvious foreign body seen on a chest x-ray. 2. 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 She is status post radiation and her chest x-ray is stable. 3. Suspected severe chronic obstructive pulmonary disease with ongoing tobacco use. She has smoked for 55 years. RECOMMENDATION: 1. Continue observation for another 24 hours. 2. Continue DuoNebs. 3. IV steroids with taper. 4. The patient was instructed to take small bites and drink plenty of water in future. 5. Follow up with Radiation Oncology. 6. From a pulmonary standpoint, she could be discharged in the next 24 hours. 7. Smoking cessation counseling provided. JAIME VUONG MD DR: SRUTHI/nts JOB#: [id number] / [id number]
[2019-01-08 15:00] VITALS: BP 171/66
[2019-01-08] MEDS: IPRATRPIUM/ALBUTEROL 0.5/2.5MG 3 ML NEBU. NEB SCH ×2 (16:24→20:09)
[2019-01-08] MEDS: ENOXAPARIN 30 MG/0.3 ML SYRINGE. SQ SCH (17:15)
[2019-01-08 18:27] LABS: BILIRUBIN,URINE NEGATIVE (NEG); CLARITY,URINE CLEAR; COLOR,URINE YELLOW; NITRITE,URINE NEGATIVE (NEG); PH,URINE 5.5; PROTEIN,URINE NEGATIVE (NEG-TRACE); UROBILINOGEN,URINE 0.2 mg/dL (0.2 mg/dL)
[2019-01-08 18:46] LABS: BACTERIA,URINE 0 /HPF (0-FEW); RBC,URINE 0 /HPF (0-2); SQUAMOUS EPITHELIAL CELL,UR MOD /LPF
[2019-01-08 19:59] VITALS: BP 111/52
[2019-01-08] MEDS: diazePAM 5 MG TABLET PO SCH (20:20)
[2019-01-08 23:00] VITALS: BP 97/52
[2019-01-09] MEDS: methylPREDNISolone SOD SUCC PF 125 MG/2 ML VIAL. IV SCH ×2 (00:32→06:15)
--- NOTE | 2019-01-09 01:38 | CONS ---
DATE OF CONSULTATION: 01/08/2019 REASON FOR CONSULTATION: Dysphagia. HISTORY OF PRESENT ILLNESS: This is a 73-year-old female with past medical history significant for COPD, non-small cell lung cancer status post radiation treatment, remote history of Crohn's, status post cataracts, is seen with an inability to swallow. She states that she had swelling of her throat and was unable to swallow solids and/or liquids. She subsequently has had passage of a possible bolus and requests additional evaluation before being released home. She has done well since her radiation treatment for lung cancer and she said otherwise doing better at this time. PAST MEDICAL HISTORY: COPD, Crohn's, status post cataract surgery. ALLERGIES: None. MEDICATIONS: Include Combivent as well as vitamin D, tramadol. SOCIAL HISTORY: Former smoker. She is a social drinker. FAMILY HISTORY: Noncontributory. REVIEW OF SYSTEMS: Per records. PHYSICAL EXAMINATION: GENERAL: This is a well-nourished, well-developed female. VITAL SIGNS: Temperature is 98.8, pulse 62, respirations 18. HEENT: Normocephalic and atraumatic. Pupils and extraocular muscles are not tested. Sclerae anicteric. NECK: Supple. LUNGS: With decreased breath sounds in the right chest, radiation tattoos were noted. CARDIOVASCULAR: S1, S2 without S3, S4 or appreciable murmur. ABDOMEN: Reveals soft abdomen, normal bowel sounds without appreciable hepatosplenomegaly. EXTREMITIES: Reveals no cyanosis, clubbing, edema. IMPRESSION: Dysphagia with history of radiation therapy for lung cancer. Differential includes recurrent lung cancer radiation stricture, Schatzki's ring, eosinophilic esophagitis, and primary esophageal cancer. Therefore, an upper endoscopy if possible biopsy and dilatation. Risks and benefits of procedure including risk of hemorrhage and perforation during the operation have been discussed with the patient who is willing to proceed at this time. I would like to thank Dr. Rios for allowing us to consult and participate in the patient's care. DEDE WEBBER MD DR: LASHON/miller JOB#: [id number] / [id number] karrie [address] Dr[address]
[2019-01-09 03:59] VITALS: BP 100/53
[2019-01-09] MEDS: IPRATRPIUM/ALBUTEROL 0.5/2.5MG 3 ML NEBU. NEB SCH ×4 (06:15→20:06)
[2019-01-09] MEDS: IV NORMAL SALINE 1000ML BAG 1,000 ML IV SCH ×3 (06:15→19:59)
[2019-01-09 07:00] VITALS: BP 110/45
--- NOTE | 2019-01-09 07:57 | EKG ---
[facility] [address] [place] [address] Test Date: 2019-01-09 Test Time: 07:37:43 Pat Name: CRUZ NICKERSON Department: Room: [facility] Gender: F Service Center Representative: CHRISTY : 1945 Requested By: ABILIO GONZALEZ Order Number: [id number] Reading MD: Jose Luis Rivas MD Measurements Intervals [place] Rate: 80 P: 90 MD: 146 QRS: 88 QRSD: 88 T: 65 QT: 394 QTc: 458 Interpretive Statements SINUS RHYTHM ATRIAL PREMATURE COMPLEX(ES) Electronically Signed On 01-20-2019 10:20:24 CDT by Jose Luis Rivas MD
[2019-01-09] MEDS: CHOLECALCIFEROL (VITAMIN D3) 1,000 UNIT TABLET PO SCH (08:42)
[2019-01-09] MEDS ORDERED: FAMOTIDINE 20 MG/2 ML VIAL IVP SCH (09:00)
--- NOTE | 2019-01-09 10:28 | PDOC ---
PROGRESS NOTES History of Present Illness History of Present Illness VTE Prophylaxis Ordered VTE Prophylaxis Devices: Yes VTE Pharmacological Prophylaxi: No Assessment/Plan Assessment/Plan impression acute angioedema ? food related? tramadol rt upper lobe likely primary lung Ca Hypermetabolic right hilar mass compatible with a primary lung malignancy PET scan 2017 copd bronchitis, chronic tobaccoism h/o crohns dz? Dysphagia with history of radiation therapy for lung cancer. iv solumedrol 40 MG Q 8 HRS, TAPER iv pepsid 20mg bid stop tramadol iv benadryl 50 mg x 1 dvt prophylaxis consult pulmonary admit 2 MN avoid nuts, tomatoes, food dyes, shellfish, keep food diary, MAY NEED institution librarian referral as outpt angioedema is potentially life-threatening, left untreated, agree with admit 43 min pt exam, chart review, > 50% of time with exam, chart review, pt care coordination Vitals Vitals Vital Signs Date Time Temp Pulse Resp B/P (MAP) Pulse Ox O2 Delivery O2 Flow Rate FiO2 01/09/19 07:00 97.7 66 16 110/45 (66) 97 Room Air 97.7 01/08/19 20:00 2.0 Physical Exam General: Alert, Oriented X3, Cooperative, No acute distress Heart: Regular rate, Normal S1, No murmurs Lungs: Clear, Wheezing Abdomen: Soft Extremities: No cyanosis, No edema Skin: No significant lesion Labs LABS Laboratory Tests Test 01/08/19 14:15 01/08/19 16:20 Albumin 3.7 g/dL (3.4-5.0) Urine Collection Type Unknown Urine Color Yellow Urine Clarity Clear Urine pH 5.5 Urine Specific [place] 1.010 Urine Protein Negative mg/dL (NEG-TRACE) Urine Glucose (UA) 100 mg/dL (NEG) Urine Ketones (Stick) 15 mg/dL (NEG) Urine Blood Negative (NEG) Urine Nitrite Negative (NEG) Urine Bilirubin Negative (NEG) Urine Urobilinogen Dipstick 0.2 mg/dL (0.2 mg/dL) Urine Leukocyte Esterase Negative (NEG) Urine RBC 0 /HPF (0-2) Urine WBC 1-4 /HPF (0-4) Urine Squamous Epithelial Cells Mod /LPF Urine Bacteria 0 /HPF (0-FEW) Urine Mucus Mod /LPF Comment Review of Relevant I have reviewed the following items hilda (where applicable) has been applied. Labs Laboratory Tests Test 4/10/19 14:15 01/08/19 16:20 Albumin 3.7 g/dL (3.4-5.0) Urine Collection Type Unknown Urine Color Yellow Urine Clarity Clear Urine pH 5.5 Urine Specific [place] 1.010 Urine Protein Negative mg/dL (NEG-TRACE) Urine Glucose (UA) 100 mg/dL (NEG) Urine Ketones (Stick) 15 mg/dL (NEG) Urine Blood Negative (NEG) Urine Nitrite Negative (NEG) Urine Bilirubin Negative (NEG) Urine Urobilinogen Dipstick 0.2 mg/dL (0.2 mg/dL) Urine Leukocyte Esterase Negative (NEG) Urine RBC 0 /HPF (0-2) Urine WBC 1-4 /HPF (0-4) Urine Squamous Epithelial Cells Mod /LPF Urine Bacteria 0 /HPF (0-FEW) Urine Mucus Mod /LPF Laboratory Tests Test 01/08/19 14:15 01/08/19 16:20 Albumin 3.7 g/dL (3.4-5.0) Urine Collection Type Unknown Urine Color Yellow Urine Clarity Clear Urine pH 5.5 Urine Specific [place] 1.010 Urine Protein Negative mg/dL (NEG-TRACE) Urine Glucose (UA) 100 mg/dL (NEG) Urine Ketones (Stick) 15 mg/dL (NEG) Urine Blood Negative (NEG) Urine Nitrite Negative (NEG) Urine Bilirubin Negative (NEG) Urine Urobilinogen Dipstick 0.2 mg/dL (0.2 mg/dL) Urine Leukocyte Esterase Negative (NEG) Urine RBC 0 /HPF (0-2) Urine WBC 1-4 /HPF (0-4) Urine Squamous Epithelial Cells Mod /LPF Urine Bacteria 0 /HPF (0-FEW) Urine Mucus Mod /LPF Medications Current Medications Midazolam HCl (Versed) 2 mg PRN 1X PRN IV PRIOR TO PROCEDURE; Start 01/08/19 at 06:45; Stop 01/09/19 at 06:45; Status DC Fentanyl Citrate (Fentanyl 2ml Vial) 25 mcg PRN Q5MIN PRN IV X 2 DOSES FOR PAIN ; Start 01/08/19 at 06:45; Stop 01/09/19 at 06:45; Status DC Fentanyl Citrate (Fentanyl 2ml Vial) 50 mcg PRN Q5MIN PRN IV X 2 DOSES FOR PAIN ; Start 01/08/19 at 06:45; Stop 01/09/19 at 06:45; Status DC Ringer's Solution 1,000 ml @ 125 mls/hr Q8H IV Last administered on 01/08/19at 06:57; Start 01/08/19 at 06:45; Stop 01/08/19 at 06:46; Status DC Lidocaine HCl (Xylocaine-Mpf 1% 2ml Vial) 2 ml 1X PRN PRN ID IV START; Start at 06:45; Stop 01/09/19 at 06:45; Status DC Propofol 20 ml @ As Directed STK-MED ONCE IV ; Start 01/08/19 at 06:57; Stop 07/19 at 06:58; Status DC Lidocaine HCl (Lidocaine Pf 2% Vial) 5 ml STK-MED ONCE .ROUTE ; Start 01/08/19 at 06:57; Stop 01/08/19 at 06:58; Status DC Methylprednisolone Sodium Succinate (SOLU-Medrol 125MG VIAL) 125 mg Q6HRS IV Last administered on 01/09/19at 06:15; Start 01/08/19 at 08:30 Diphenhydramine HCl (Benadryl) 50 mg 1X ONCE IVP Last administered on at 08:38; Start 01/08/19 at 08:30; Stop 01/08/19 at 08:31; Status DC Sodium Chloride 1,000 ml @ 100 mls/hr Q10H IV Last administered on 01/09/19at 06:15; Start 01/08/19 at 09:00 Famotidine (Pepcid Vial) 20 mg BID IVP Last administered on 01/08/19at 09:27; Start 01/08/19 at 08:30; Stop 01/08/19 at 15:13; Status DC Diazepam (Valium) 5 mg HS PO Last administered on 01/08/19at 20:20; Start at 21:00 Vitamin D (Vitamin D3) 2,000 unit DAILY PO Last administered on 01/09/19at 08:42 ; Start 01/08/19 at 14:00 Non-Formulary Medication (Ipratropium/ Albuterol Sulfate (Combivent Respimat Inhal)) 1 inh QID IH ; Start 01/08/19 at 13:00; Status UNV Enoxaparin Sodium (Lovenox 40mg Syringe) 40 mg Q24H SQ ; Start 01/08/19 at 14:00 ; Status Cancel Albuterol/ Ipratropium (Duoneb) 3 ml RTQID NEB Last administered on 01/09/19at 06:15; Start 01/08/19 at 16:00 Acetaminophen (Tylenol) 650 mg PRN Q4HRS PRN PO TEMP OVER 100.4F OR MILD PAIN; Start 01/08/19 at 13:45 Al Hydroxide/Mg Hydroxide (Mylanta Plus Xs) 30 ml PRN DAILY PRN PO HEARTBURN / GAS; Start 01/08/19 at 13:45 Clonidine HCl (Catapres) 0.1 mg PRN Q6HRS PRN PO SBP>160 OR DBP>90; Start 01/08 at 13:45 Sodium Monofluorophosphate (Fleet Adult) 133 ml PRN DAILY PRN AL CONSTIPATION; Start 01/08/19 at 13:45 Diphenhydramine HCl (Benadryl) 25 mg PRN Q4HRS PRN IVP ITCHING; Start 01/08/19 at 13:45 Docusate Sodium (Colace) 100 mg PRN BID PRN PO CONSTIPATION; Start 01/08/19 at 13:45 Albuterol/ Ipratropium (Duoneb) 3 ml Q4H NEB ; Start 01/08/19 at 13:45; Status UNV Guaifenesin (Robitussin) 200 mg PRN Q4HRS PRN PO COUGH; Start 01/08/19 at 13:45 Lorazepam (Ativan) 0.5 mg PRN Q4HRS PRN PO ANXIETY / AGITATION; Start 01/08/19 at 13:45 Enoxaparin Sodium (Lovenox 30mg Syringe) 30 mg Q24H SQ Last administered on 07/19at 17:15; Start 01/08/19 at 17:00 Famotidine (Pepcid Vial) 20 mg DAILY IVP Last administered on 01/09/19at 08:43; Start 01/09/19 at 09:00 Active Scripts Active Combivent Respimat Inhal (Ipratropium/Albuterol Sulfate) 4 Gm Aer.w.adap 1 Inh IH QID Reported Valium (Diazepam) 5 Mg Tablet 5 Mg PO HS Vitamin D (Cholecalciferol (Vitamin D3)) 2,000 Unit Capsule 2,000 Unit PO DAILY Tramadol Hcl 50 Mg Tablet 1 Tab PO PRN Q6HRS Vitals/I & O Vital Sign - Last 24 Hours 01/08/19 01/08/19 01/08/19 01/08/19 11:00 11:06 15:00 16:24 Temp 98.3 98.0 98.3 98.0 Pulse 57 61 Resp 16 18 B/P (MAP) 119/58 (78) 171/66 (101) Pulse Ox 95 97 94 O2 Delivery Room Air Room Air Room Air Room Air 01/08/19 01/08/19 01/08/19 01/08/19 19:59 20:00 20:11 23:00 Temp 97.4 97.5 97.4 97.5 Pulse 81 99 Resp 18 16 B/P (MAP) 111/52 (71) 97/52 (67) Pulse Ox 97 97 94 O2 Delivery Room Air Room Air Room Air Room Air O2 Flow Rate 2.0 01/09/19 01/09/19 01/09/19 03:59 06:16 07:00 Temp 97.8 97.7 97.8 97.7 Pulse 74 66 Resp 16 16 B/P (MAP) 100/53 (69) 110/45 (66) Pulse Ox 95 97 97 O2 Delivery Room Air Room Air Room Air Intake and Output 01/08/19 01/08/19 01/09/19 14:59 22:59 06:59 Intake Total 325 ml 700 ml Balance 325 ml 700 ml Nutrition Consultation Dietary Evaluation: Comments: continue with nutrition care plan offer supplements from unit prn. Expected Outcomes/Goals: to meet > 75% est nutr needs Malnutrition Findings: Body Fat Depletion (Non Severe: Mod to Severe Weight Status: Underweight ABILIO GONZALEZ MD Jan 09, 2019 10:28
--- NOTE | 2019-01-09 10:59 | PDOC ---
Subjective: Subjective: Eating, drinking, and breathing normally. Wants to go home. Objective: Vital Signs: Vital Signs Date Time Temp Pulse Resp B/P (MAP) Pulse Ox O2 Delivery O2 Flow Rate FiO2 01/09/19 07:00 97.7 66 16 110/45 (66) 97 Room Air 97.7 01/08/19 20:00 2.0 Labs: Laboratory Tests Test 01/08/19 14:15 01/08/19 16:20 Albumin 3.7 g/dL Urine Collection Type Unknown Urine Color Yellow Urine Clarity Clear Urine pH 5.5 Urine Specific [place] 1.010 Urine Protein Negative mg/dL Urine Glucose (UA) 100 mg/dL Urine Ketones (Stick) 15 mg/dL Urine Blood Negative Urine Nitrite Negative Urine Bilirubin Negative Urine Urobilinogen Dipstick 0.2 mg/dL Urine Leukocyte Esterase Negative Urine RBC 0 /HPF Urine WBC 1-4 /HPF Urine Squamous Epithelial Cells Mod /LPF Urine Bacteria 0 /HPF Urine Mucus Mod /LPF PE: GEN: NAD - was asleep LUNGS: room air NEURO/PSYCH: A & O 3 A/P: Laryngeal edema - prominent on left false and right vocal cord, partially obstructing -- DC per hospitalist team. ETHAN MA Jan 09, 2019 10:59
[2019-01-09 11:00] VITALS: BP 110/56
[2019-01-09] MEDS ORDERED: methylPREDNISolone SOD SUCC PF 125 MG/2 ML VIAL. IV SCH (12:00)
--- NOTE | 2019-01-09 12:13 | PDOC ---
PULMONARY PROGRESS NOTES Subjective sob, cough better, no pain Vitals Vital Signs Date Time Temp Pulse Resp B/P (MAP) Pulse Ox O2 Delivery O2 Flow Rate FiO2 01/09/19 11:23 97 Room Air 01/09/19 11:00 97.8 84 16 110/56 (74) 97.8 01/08/19 20:00 2.0 ROS: No Nausea, No Chest Pain General: Alert, No acute distress HEENT: Other (nc at perrl ) Lungs: Crackles Cardiovascular: S1, S2 Abdomen: Soft, Non-tender Neuro Exam: Alert Extremities: No Edema Skin: Warm Labs Laboratory Tests Test 01/08/19 14:15 01/08/19 16:20 Albumin 3.7 g/dL (3.4-5.0) Urine Collection Type Unknown Urine Color Yellow Urine Clarity Clear Urine pH 5.5 Urine Specific [place] 1.010 Urine Protein Negative mg/dL (NEG-TRACE) Urine Glucose (UA) 100 mg/dL (NEG) Urine Ketones (Stick) 15 mg/dL (NEG) Urine Blood Negative (NEG) Urine Nitrite Negative (NEG) Urine Bilirubin Negative (NEG) Urine Urobilinogen Dipstick 0.2 mg/dL (0.2 mg/dL) Urine Leukocyte Esterase Negative (NEG) Urine RBC 0 /HPF (0-2) Urine WBC 1-4 /HPF (0-4) Urine Squamous Epithelial Cells Mod /LPF Urine Bacteria 0 /HPF (0-FEW) Urine Mucus Mod /LPF Laboratory Tests Test 01/08/19 14:15 01/08/19 16:20 Albumin 3.7 g/dL (3.4-5.0) Urine Collection Type Unknown Urine Color Yellow Urine Clarity Clear Urine pH 5.5 Urine Specific [place] 1.010 Urine Protein Negative mg/dL (NEG-TRACE) Urine Glucose (UA) 100 mg/dL (NEG) Urine Ketones (Stick) 15 mg/dL (NEG) Urine Blood Negative (NEG) Urine Nitrite Negative (NEG) Urine Bilirubin Negative (NEG) Urine Urobilinogen Dipstick 0.2 mg/dL (0.2 mg/dL) Urine Leukocyte Esterase Negative (NEG) Urine RBC 0 /HPF (0-2) Urine WBC 1-4 /HPF (0-4) Urine Squamous Epithelial Cells Mod /LPF Urine Bacteria 0 /HPF (0-FEW) Urine Mucus Mod /LPF Medications Active Scripts Medications Dose Route/Sig Max Daily Dose Days Date Category Valium (Diazepam) 5 Mg Tablet 5 Mg PO HS 10/17/18 Reported Vitamin D (Cholecalciferol (Vitamin D3)) 2,000 Unit Capsule 2,000 Unit PO DAILY 07/09/18 Reported Combivent Respimat Inhal (Ipratropium/Albuterol Sulfate) 4 Gm Aer.w.adap 1 Inh IH QID 12/07/17 Rx Tramadol Hcl 50 Mg Tablet 1 Tab PO PRN Q6HRS 12/03/17 Reported Impression . IMPRESSION: 1. Status post EGD with no foreign body seen. She is clinically much better. She had mild edema of the vocal cords noted, as a result she is kept for observation. No obvious foreign body seen on a chest x-ray. 2. 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 She is status post radiation and her chest x-ray is stable. 3. Suspected severe chronic obstructive pulmonary disease with ongoing tobacco use. She has smoked for 55 years. Plan . RECOMMENDATION: 1. 02 titration 2. Continue DuoNebs. 3. change solumedrol to 40 mg iv q 8 hrs 4. The patient was instructed to take small bites and drink plenty of water in future. 5. Follow up with Radiation Oncology. 6. Smoking cessation counseling provided. discussed w NASEEM Umana MD Jan 09, 2019 12:13
[2019-01-09] MEDS: methylPREDNISolone SOD SUCC PF 40 MG/ML VIAL. IV SCH ×2 (14:52→20:38)
[2019-01-09 15:00] VITALS: BP 99/43
[2019-01-09] MEDS: ENOXAPARIN 30 MG/0.3 ML SYRINGE. SQ SCH (17:35)
[2019-01-09 19:20] VITALS: BP 127/55
[2019-01-09] MEDS: diazePAM 5 MG TABLET PO SCH (19:59)
[2019-01-09 23:20] VITALS: BP 106/51
[2019-01-10 03:20] VITALS: BP 104/57
[2019-01-10] MEDS: IPRATRPIUM/ALBUTEROL 0.5/2.5MG 3 ML NEBU. NEB SCH ×2 (06:18→12:17)
[2019-01-10] MEDS: methylPREDNISolone SOD SUCC PF 40 MG/ML VIAL. IV SCH (06:19)
[2019-01-10 07:00] VITALS: BP 101/51
--- NOTE | 2019-01-10 07:07 | PDOC ---
PULMONARY PROGRESS NOTES Subjective sob better, has occ cough, no pain Vitals Vital Signs Date Time Temp Pulse Resp B/P (MAP) Pulse Ox O2 Delivery O2 Flow Rate FiO2 01/10/19 06:16 Room Air 01/10/19 03:20 97.5 74 18 104/57 (73) 94 97.5 01/09/19 20:00 2.0 ROS: No Nausea, No Chest Pain General: Alert, No acute distress HEENT: Other (nc at perrl ) Lungs: Clear Cardiovascular: S1, S2 Abdomen: Soft, Non-tender Neuro Exam: Alert Extremities: No Edema Skin: Warm Labs Laboratory Tests Test 01/08/19 14:15 01/08/19 16:20 Albumin 3.7 g/dL (3.4-5.0) Urine Collection Type Unknown Urine Color Yellow Urine Clarity Clear Urine pH 5.5 Urine Specific [place] 1.010 Urine Protein Negative mg/dL (NEG-TRACE) Urine Glucose (UA) 100 mg/dL (NEG) Urine Ketones (Stick) 15 mg/dL (NEG) Urine Blood Negative (NEG) Urine Nitrite Negative (NEG) Urine Bilirubin Negative (NEG) Urine Urobilinogen Dipstick 0.2 mg/dL (0.2 mg/dL) Urine Leukocyte Esterase Negative (NEG) Urine RBC 0 /HPF (0-2) Urine WBC 1-4 /HPF (0-4) Urine Squamous Epithelial Cells Mod /LPF Urine Bacteria 0 /HPF (0-FEW) Urine Mucus Mod /LPF Medications Active Scripts Medications Dose Route/Sig Max Daily Dose Days Date Category Valium (Diazepam) 5 Mg Tablet 5 Mg PO HS 10/17/18 Reported Vitamin D (Cholecalciferol (Vitamin D3)) 2,000 Unit Capsule 2,000 Unit PO DAILY 07/09/18 Reported Combivent Respimat Inhal (Ipratropium/Albuterol Sulfate) 4 Gm Aer.w.adap 1 Inh IH QID 12/07/17 Rx Tramadol Hcl 50 Mg Tablet 1 Tab PO PRN Q6HRS 12/03/17 Reported Impression . IMPRESSION: 1. Status post EGD with no foreign body seen. She is clinically much better. She had mild edema of the vocal cords noted, as a result she is kept for observation. No obvious foreign body seen on a chest x-ray. 2. 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 She is status post radiation and her chest x-ray is stable. 3. Suspected severe chronic obstructive pulmonary disease with ongoing tobacco use. She has smoked for 55 years. Plan . RECOMMENDATION: 1. 02 titration 2. Continue DuoNebs. 3. change solumedrol to prednisone 40 mg w taper by 10 mg q 3d 4. The patient was instructed to take small bites and drink plenty of water in future. 5. Follow up with Radiation Oncology. 6. Smoking cessation counseling provided. ok to dc from pulm stand point discussed w pt NASEEM KAUFFMAN MD Jan 10, 2019 07:07
[2019-01-10] MEDS: IV NORMAL SALINE 1000ML BAG 1,000 ML IV SCH (07:54)
[2019-01-10] MEDS: CHOLECALCIFEROL (VITAMIN D3) 1,000 UNIT TABLET PO SCH (08:57)
[2019-01-10] MEDS ORDERED: predniSONE 20 MG TABLET PO SCH (09:00)
--- NOTE | 2019-01-10 09:02 | PDOC ---
Subjective: Subjective: No complaints. Objective: Vital Signs: Vital Signs Date Time Temp Pulse Resp B/P (MAP) Pulse Ox O2 Delivery O2 Flow Rate FiO2 01/10/19 07:00 97.8 80 18 101/51 (68) 94 Room Air 97.8 01/09/19 20:00 2.0 PE: GEN: NAD - eating toast and eggs LUNGS: room air HEART: RRR ABD: S/ND/NT NEURO/PSYCH: A & O 3 A/P: Laryngeal edema -- DC per primary and pulm. ETHAN MA Jan 10, 2019 09:02
--- NOTE | 2019-01-10 10:23 | PDOC ---
PROGRESS NOTES History of Present Illness History of Present Illness VTE Prophylaxis Ordered VTE Prophylaxis Devices: Yes VTE Pharmacological Prophylaxi: No Assessment/Plan Assessment/Plan impression acute angioedema ? food related? tramadol rt upper lobe likely primary lung Ca Hypermetabolic right hilar mass compatible with a primary lung malignancy PET scan 2017 copd bronchitis, chronic tobaccoism, ONGOING h/o crohns dz? Dysphagia with history of radiation therapy for lung cancer. iv solumedrol 40 MG Q 8 HRS, TAPER, D/C BEGIN PREDNISONE 40 MG DAILY X 3 DAYS , TAPER BY 10 MG Q 3 DAYS iv pepsid 20mg bid stop tramadol iv benadryl 50 mg x 1 dvt prophylaxis consult pulmonary admit 2 [place] STOP SMOKING avoid nuts, tomatoes, food dyes, shellfish, keep food diary, MAY NEED enlisted advisor referral as outpt angioedema is potentially life-threatening, left untreated, agree with admit 43 min pt exam, chart review, > 50% of time with exam, chart review, pt care coordination Vitals Vitals Vital Signs Date Time Temp Pulse Resp B/P (MAP) Pulse Ox O2 Delivery O2 Flow Rate FiO2 01/10/19 07:00 97.8 80 18 101/51 (68) 94 Room Air 97.8 01/09/19 20:00 2.0 Physical Exam General: Alert, Oriented X3, Cooperative, No acute distress Heart: Regular rate, Normal S1, No murmurs Lungs: Clear Abdomen: Normal bowel sounds, Soft Extremities: No cyanosis, No edema Skin: No significant lesion Comment Review of Relevant I have reviewed the following items hilda (where applicable) has been applied. Labs Laboratory Tests Test 01/08/19 14:15 01/08/19 16:20 Albumin 3.7 g/dL (3.4-5.0) Urine Collection Type Unknown Urine Color Yellow Urine Clarity Clear Urine pH 5.5 Urine Specific [place] 1.010 Urine Protein Negative mg/dL (NEG-TRACE) Urine Glucose (UA) 100 mg/dL (NEG) Urine Ketones (Stick) 15 mg/dL (NEG) Urine Blood Negative (NEG) Urine Nitrite Negative (NEG) Urine Bilirubin Negative (NEG) Urine Urobilinogen Dipstick 0.2 mg/dL (0.2 mg/dL) Urine Leukocyte Esterase Negative (NEG) Urine RBC 0 /HPF (0-2) Urine WBC 1-4 /HPF (0-4) Urine Squamous Epithelial Cells Mod /LPF Urine Bacteria 0 /HPF (0-FEW) Urine Mucus Mod /LPF Medications Current Medications Midazolam HCl (Versed) 2 mg PRN 1X PRN IV PRIOR TO PROCEDURE; Start 01/08/19 at 06:45; Stop 01/09/19 at 06:45; Status DC Fentanyl Citrate (Fentanyl 2ml Vial) 25 mcg PRN Q5MIN PRN IV X 2 DOSES FOR PAIN ; Start 01/08/19 at 06:45; Stop 01/09/19 at 06:45; Status DC Fentanyl Citrate (Fentanyl 2ml Vial) 50 mcg PRN Q5MIN PRN IV X 2 DOSES FOR PAIN ; Start 01/08/19 at 06:45; Stop 01/09/19 at 06:45; Status DC Ringer's Solution 1,000 ml @ 125 mls/hr Q8H IV Last administered on 01/08/19at 06:57; Start 01/08/19 at 06:45; Stop 01/08/19 at 06:46; Status DC Lidocaine HCl (Xylocaine-Mpf 1% 2ml Vial) 2 ml 1X PRN PRN ID IV START; Start at 06:45; Stop 01/09/19 at 06:45; Status DC Propofol 20 ml @ As Directed STK-MED ONCE IV ; Start 01/08/19 at 06:57; Stop 07/19 at 06:58; Status DC Lidocaine HCl (Lidocaine Pf 2% Vial) 5 ml STK-MED ONCE .ROUTE ; Start 01/08/19 at 06:57; Stop 01/08/19 at 06:58; Status DC Methylprednisolone Sodium Succinate (SOLU-Medrol 125MG VIAL) 125 mg Q6HRS IV Last administered on 01/09/19at 06:15; Start 01/08/19 at 08:30; Stop 01/09/19 at 10:31; Status DC Diphenhydramine HCl (Benadryl) 50 mg 1X ONCE IVP Last administered on at 08:38; Start 01/08/19 at 08:30; Stop 01/08/19 at 08:31; Status DC Sodium Chloride 1,000 ml @ 100 mls/hr Q10H IV Last administered on 01/10/19at 07:54; Start 01/08/19 at 09:00 Famotidine (Pepcid Vial) 20 mg BID IVP Last administered on 01/08/19at 09:27; Start 01/08/19 at 08:30; Stop 01/08/19 at 15:13; Status DC Diazepam (Valium) 5 mg HS PO Last administered on 01/09/19at 19:59; Start at 21:00 Vitamin D (Vitamin D3) 2,000 unit DAILY PO Last administered on 01/10/19at 08:57 ; Start 01/08/19 at 14:00 Non-Formulary Medication (Ipratropium/ Albuterol Sulfate (Combivent Respimat Inhal)) 1 inh QID IH ; Start 01/08/19 at 13:00; Status UNV Enoxaparin Sodium (Lovenox 40mg Syringe) 40 mg Q24H SQ ; Start 01/08/19 at 14:00 ; Status Cancel Albuterol/ Ipratropium (Duoneb) 3 ml RTQID NEB Last administered on 01/10/19at 06:18; Start 01/08/19 at 16:00 Acetaminophen (Tylenol) 650 mg PRN Q4HRS PRN PO TEMP OVER 100.4F OR MILD PAIN Last administered on 01/09/19at 20:38; Start 01/08/19 at 13:45 Al Hydroxide/Mg Hydroxide (Mylanta Plus Xs) 30 ml PRN DAILY PRN PO HEARTBURN / GAS; Start 01/08/19 at 13:45 Clonidine HCl (Catapres) 0.1 mg PRN Q6HRS PRN PO SBP>160 OR DBP>90; Start 01/08 at 13:45 Sodium Monofluorophosphate (Fleet Adult) 133 ml PRN DAILY PRN [place] CONSTIPATION; Start 01/08/19 at 13:45 Diphenhydramine HCl (Benadryl) 25 mg PRN Q4HRS PRN IVP ITCHING; Start 01/08/19 at 13:45 Docusate Sodium (Colace) 100 mg PRN BID PRN PO CONSTIPATION; Start 01/08/19 at 13:45 Albuterol/ Ipratropium (Duoneb) 3 ml Q4H NEB ; Start 01/08/19 at 13:45; Status UNV Guaifenesin (Robitussin) 200 mg PRN Q4HRS PRN PO COUGH; Start 01/08/19 at 13:45 Lorazepam (Ativan) 0.5 mg PRN Q4HRS PRN PO ANXIETY / AGITATION Last administered on 01/09/19at 14:58; Start 01/08/19 at 13:45 Enoxaparin Sodium (Lovenox 30mg Syringe) 30 mg Q24H SQ Last administered on 08/19at 17:35; Start 01/08/19 at 17:00 Famotidine (Pepcid Vial) 20 mg DAILY IVP Last administered on 01/09/19at 08:43; Start 01/09/19 at 09:00; Stop 01/09/19 at 10:59; Status DC Methylprednisolone Sodium Succinate (SOLU-Medrol 125MG VIAL) 60 mg Q6HRS IV ; Start 01/09/19 at 12:00; Stop 01/09/19 at 12:14; Status DC Methylprednisolone Sodium Succinate (SOLU-Medrol 40MG VIAL) 40 mg Q8HRS IV Last administered on 01/10/19at 06:19; Start 01/09/19 at 14:00; Stop 01/10/19 at 07:08; Status DC Prednisone (Prednisone) 40 mg DAILY PO Last administered on 01/10/19at 08:56; Start 01/10/19 at 09:00 Active Scripts Active Combivent Respimat Inhal (Ipratropium/Albuterol Sulfate) 4 Gm Aer.w.adap 1 Inh IH QID Reported Valium (Diazepam) 5 Mg Tablet 5 Mg PO HS Vitamin D (Cholecalciferol (Vitamin D3)) 2,000 Unit Capsule 2,000 Unit PO DAILY Tramadol Hcl 50 Mg Tablet 1 Tab PO PRN Q6HRS Vitals/I & O Vital Sign - Last 24 Hours 01/09/19 01/09/19 01/09/19 01/09/19 11:00 11:23 15:00 15:41 Temp 97.8 98.0 97.8 98.0 Pulse 84 94 Resp 16 16 B/P (MAP) 110/56 (74) 99/43 (61) Pulse Ox 98 97 98 97 O2 Delivery Room Air Room Air Room Air Room Air 01/09/19 01/09/19 01/09/19 01/09/19 19:20 20:00 20:09 23:20 Temp 98.2 97.7 98.2 97.7 Pulse 84 84 Resp 24 18 B/P (MAP) 127/55 (79) 106/51 (69) Pulse Ox 97 98 O2 Delivery Room Air Room Air Room Air Room Air O2 Flow Rate 2.0 01/10/19 01/10/19 01/10/19 03:20 06:16 07:00 Temp 97.5 97.8 97.5 97.8 Pulse 74 80 Resp 18 18 B/P (MAP) 104/57 (73) 101/51 (68) Pulse Ox 94 94 O2 Delivery Room Air Room Air Room Air Intake and Output 01/09/19 01/09/19 01/10/19 14:59 22:59 06:59 Intake Total 120 ml 600 ml Balance 120 ml 600 ml Nutrition Consultation Dietary Evaluation: Comments: continue with nutrition care plan offer supplements from unit prn. Expected Outcomes/Goals: to meet > 75% est nutr needs Malnutrition Findings: Body Fat Depletion (Non Severe: Mod to Severe Weight Status: Underweight ABILIO GONZALEZ MD Jan 10, 2019 10:23
[2019-01-10 11:00] VITALS: BP 123/60
--- NOTE | 2019-01-10 12:27 | PDOC3 ---
Discharge Summary Date of Admission: Jan 08, 2019 Date of Discharge: Jan 10, 2019 Follow-Up: 3-5 days Admitting Diagnosis comment: DISCHARGE DX Assessment/Plan impression acute angioedema RESOLVED , ? food related? tramadol rt upper lobe likely primary lung Ca Hypermetabolic right hilar mass compatible with a primary lung malignancy PET scan 2017 copd bronchitis, chronic tobaccoism, ONGOING h/o crohns dz? Dysphagia with history of radiation therapy for lung cancer. iv solumedrol 40 MG Q 8 HRS, TAPER, D/C BEGIN PREDNISONE 40 MG DAILY X 3 DAYS , TAPER BY 10 MG Q 3 DAYS iv pepsid 20mg bid stop tramadol iv benadryl 50 mg x 1 dvt prophylaxis consult pulmonary admit 2 [place] STOP SMOKING avoid nuts, tomatoes, food dyes, shellfish, keep food diary, MAY NEED auto damage appraiser referral as outpt angioedema is potentially life-threatening, left untreated, agree with admit 43 min pt exam, chart review, > 50% of time with exam, chart review, pt care coordination ON ROOM AIR Vitals Vitals Vital Signs Date Time Temp Pulse Resp B/P (MAP) Pulse Ox O2 Delivery O2 Flow Rate FiO2 01/10/19 07:00 97.8 80 18 101/51 (68) 94 Room Air 97.8 01/09/19 20:00 2.0 Physical Exam General: Alert, Oriented X3, Cooperative, No acute distress Heart: Regular rate, Normal S1, No murmurs Lungs: Clear Abdomen: Normal bowel sounds, Soft Extremities: No cyanosis, No edema Skin: No significant lesion Brief Hospital Course Ms. Eng is a 73 old [sex] who presented with [ANGIOEDEMA ] CONDITION AT DISCHARGE: Improved Discharge Medications Current Medications Midazolam HCl (Versed) 2 mg PRN 1X PRN IV PRIOR TO PROCEDURE; Start 01/08/19 at 06:45; Stop 01/09/19 at 06:45; Status DC Fentanyl Citrate (Fentanyl 2ml Vial) 25 mcg PRN Q5MIN PRN IV X 2 DOSES FOR PAIN ; Start 01/08/19 at 06:45; Stop 01/09/19 at 06:45; Status DC Fentanyl Citrate (Fentanyl 2ml Vial) 50 mcg PRN Q5MIN PRN IV X 2 DOSES FOR PAIN ; Start 01/08/19 at 06:45; Stop 01/09/19 at 06:45; Status DC Ringer's Solution 1,000 ml @ 125 mls/hr Q8H IV Last administered on 01/08/19at 06:57; Start 01/08/19 at 06:45; Stop 01/08/19 at 06:46; Status DC Lidocaine HCl (Xylocaine-Mpf 1% 2ml Vial) 2 ml 1X PRN PRN ID IV START; Start at 06:45; Stop 01/09/19 at 06:45; Status DC Propofol 20 ml @ As Directed STK-MED ONCE IV ; Start 01/08/19 at 06:57; Stop 07/19 at 06:58; Status DC Lidocaine HCl (Lidocaine Pf 2% Vial) 5 ml STK-MED ONCE .ROUTE ; Start 01/08/19 at 06:57; Stop 01/08/19 at 06:58; Status DC Methylprednisolone Sodium Succinate (SOLU-Medrol 125MG VIAL) 125 mg Q6HRS IV Last administered on 01/09/19at 06:15; Start 01/08/19 at 08:30; Stop 01/09/19 at 10:31; Status DC Diphenhydramine HCl (Benadryl) 50 mg 1X ONCE IVP Last administered on at 08:38; Start 01/08/19 at 08:30; Stop 01/08/19 at 08:31; Status DC Sodium Chloride 1,000 ml @ 100 mls/hr Q10H IV Last administered on 01/10/19at 07:54; Start 01/08/19 at 09:00 Famotidine (Pepcid Vial) 20 mg BID IVP Last administered on 01/08/19at 09:27; Start 01/08/19 at 08:30; Stop 01/08/19 at 15:13; Status DC Diazepam (Valium) 5 mg HS PO Last administered on 01/09/19at 19:59; Start at 21:00 Vitamin D (Vitamin D3) 2,000 unit DAILY PO Last administered on 01/10/19at 08:57 ; Start 01/08/19 at 14:00 Non-Formulary Medication (Ipratropium/ Albuterol Sulfate (Combivent Respimat Inhal)) 1 inh QID IH ; Start 01/08/19 at 13:00; Status UNV Enoxaparin Sodium (Lovenox 40mg Syringe) 40 mg Q24H SQ ; Start 01/08/19 at 14:00 ; Status Cancel Albuterol/ Ipratropium (Duoneb) 3 ml RTQID NEB Last administered on 01/10/19at 06:18; Start 01/08/19 at 16:00 Acetaminophen (Tylenol) 650 mg PRN Q4HRS PRN PO TEMP OVER 100.4F OR MILD PAIN Last administered on 01/09/19at 20:38; Start 01/08/19 at 13:45 Al Hydroxide/Mg Hydroxide (Mylanta Plus Xs) 30 ml PRN DAILY PRN PO HEARTBURN / GAS; Start 01/08/19 at 13:45 Clonidine HCl (Catapres) 0.1 mg PRN Q6HRS PRN PO SBP>160 OR DBP>90; Start 01/08 at 13:45 Sodium Monofluorophosphate (Fleet Adult) 133 ml PRN DAILY PRN [place] CONSTIPATION; Start 01/08/19 at 13:45 Diphenhydramine HCl (Benadryl) 25 mg PRN Q4HRS PRN IVP ITCHING; Start 01/08/19 at 13:45 Docusate Sodium (Colace) 100 mg PRN BID PRN PO CONSTIPATION; Start 01/08/19 at 13:45 Albuterol/ Ipratropium (Duoneb) 3 ml Q4H NEB ; Start 01/08/19 at 13:45; Status UNV Guaifenesin (Robitussin) 200 mg PRN Q4HRS PRN PO COUGH; Start 01/08/19 at 13:45 Lorazepam (Ativan) 0.5 mg PRN Q4HRS PRN PO ANXIETY / AGITATION Last administered on 01/09/19at 14:58; Start 01/08/19 at 13:45 Enoxaparin Sodium (Lovenox 30mg Syringe) 30 mg Q24H SQ Last administered on 08/19at 17:35; Start 01/08/19 at 17:00 Famotidine (Pepcid Vial) 20 mg DAILY IVP Last administered on 01/09/19at 08:43; Start 01/09/19 at 09:00; Stop 01/09/19 at 10:59; Status DC Methylprednisolone Sodium Succinate (SOLU-Medrol 125MG VIAL) 60 mg Q6HRS IV ; Start 01/09/19 at 12:00; Stop 01/09/19 at 12:14; Status DC Methylprednisolone Sodium Succinate (SOLU-Medrol 40MG VIAL) 40 mg Q8HRS IV Last administered on 01/10/19at 06:19; Start 01/09/19 at 14:00; Stop 01/10/19 at 07:08; Status DC Prednisone (Prednisone) 40 mg DAILY PO Last administered on 01/10/19at 08:56; Start 01/10/19 at 09:00 Active Scripts Active Combivent Respimat Inhal (Ipratropium/Albuterol Sulfate) 4 Gm Aer.w.adap 1 Inh IH QID Reported Valium (Diazepam) 5 Mg Tablet 5 Mg PO HS Vitamin D (Cholecalciferol (Vitamin D3)) 2,000 Unit Capsule 2,000 Unit PO DAILY Tramadol Hcl 50 Mg Tablet 1 Tab PO PRN Q6HRS Vital Signs Vital Signs Date Time Temp Pulse Resp B/P (MAP) Pulse Ox O2 Delivery O2 Flow Rate FiO2 01/10/19 11:00 98.2 78 20 123/60 (81) 94 Room Air 98.2 01/09/19 20:00 2.0 Labs Laboratory Tests Test 01/08/19 14:15 01/08/19 16:20 Albumin 3.7 g/dL (3.4-5.0) Urine Collection Type Unknown Urine Color Yellow Urine Clarity Clear Urine pH 5.5 Urine Specific [place] 1.010 Urine Protein Negative mg/dL (NEG-TRACE) Urine Glucose (UA) 100 mg/dL (NEG) Urine Ketones (Stick) 15 mg/dL (NEG) Urine Blood Negative (NEG) Urine Nitrite Negative (NEG) Urine Bilirubin Negative (NEG) Urine Urobilinogen Dipstick 0.2 mg/dL (0.2 mg/dL) Urine Leukocyte Esterase Negative (NEG) Urine RBC 0 /HPF (0-2) Urine WBC 1-4 /HPF (0-4) Urine Squamous Epithelial Cells Mod /LPF Urine Bacteria 0 /HPF (0-FEW) Urine Mucus Mod /LPF Allergies Allergies Coded Allergies Type Severity Reaction Last Updated Verified tomato Allergy Severe 01/08/19 Yes Penicillins Allergy Intermediate Unknown 4/10/19 Yes Disposition/Orders: D/C to Home Patient Instructions D/C PLANNING 40 MIN ABILIO GONZALEZ MD Jan 10, 2019 12:27
[2019-01-10] MEDS ORDERED: PRED20TA PO (12:29)
--- NOTE | 2019-01-10 12:33 | DISCH ---
DISCHARGE INSTRUCTIONS Condition on Discharge Condition on Discharge: Stable Activity After Discharge Activity Instructions for Disc: Activity as tolerated Lifting Instructions after Dis: No heavy lifting, No pulling or pushing Driving Instructions after Dis: Do not drive today Weight Bearing Status after Di: As tolerated Diet after Discharge Diet after Discharge: Cardiac Checks after Discharge Checks after discharge: Check blood press - daily Contacting the DRStacey after DC Call your doctor for: If your condition worsens Treatment/Equipment after DC Adaptive Equipment Issued: None ABILIO GONZALEZ MD Jan 10, 2019 12:33
== END 2019-01-10 15:01 | disposition home or self-care (01) | DRG 916 ==
LOC: SURG 06:30 → OBSVTOIN 08:00 → 6 SOUTH 08:00
PROVIDERS: ADMIT Family Medicine; ATTEND Internal Medicine Gastroenterology
PROC: 0DJ08ZZ Inspection of Upper Intestinal Tract, Via Natural or Artificial Opening Endoscopic (ICD-10-PCS; principal; 2019-01-08 06:45)
DX: T78.3XXA Angioneurotic edema, initial encounter (principal); C34.11 Malignant neoplasm of upper lobe, right bronchus or lung; K50.90 Crohn's disease, unspecified, without complications; J44.9 Chronic obstructive pulmonary disease, unspecified; M19.90 Unspecified osteoarthritis, unspecified site; R13.10 Dysphagia, unspecified; J38.4 Edema of larynx; K57.30 Diverticulosis of large intestine without perforation or abscess without bleeding; F17.210 Nicotine dependence, cigarettes, uncomplicated; Z82.49 Family history of ischemic heart disease and other diseases of the circulatory system; Z82.5 Family history of asthma and other chronic lower respiratory diseases; Z88.0 Allergy status to penicillin; Z92.3 Personal history of irradiation; Z71.6 Tobacco abuse counseling
CPT/HCPCS: 36415; 43235; 71046; 80053; 81001; 82040; 85025; 93005; 94640; J1200; J1610; J1650; J2001; J2704; J2920; J2930; J3490; J7030; J7512; J7620

== ENCOUNTER 2019-02-13 16:29 | Emergency (ER) | payer OTHER ==
[~2019-02-13] VITALS: Ht 165.1 cm; Wt 46.7 kg
[~2019-02-13 16:29] MED LIST changes: +PRED20TA PO
[2019-02-13 17:47] LABS: BASO % 1 % (0-3); EOS % 0 % (0-3); HEMATOCRIT 40.4 % (36.0-47.0); HEMOGLOBIN 13.6 g/dL (12.0-15.5); LYMPH # 1.3 x10^3/uL (1.0-4.8); LYMPH % 16 % (24-48); MEAN CORPUSCULAR HEMOGLOBIN 33 pg (25-35); MEAN CORPUSCULAR HGB CONC 34 g/dL (31-37); MEAN CORPUSCULAR VOLUME 98 fL (79-100); MONO # 0.7 x10^3/uL (0.0-1.1); MONO % 9 % (0-9); NEUT # 5.9 x10^3uL (1.8-7.7); NEUT % 74 % (31-73); PLATELET COUNT 399 x10^3/uL (140-400); RED BLOOD COUNT 4.15 x10^6/uL (3.50-5.40); RED CELL DISTRIBUTION WIDTH 14.4 % (11.5-14.5)
[2019-02-13 17:57] LABS: CALCIUM 9.3 mg/dL (8.5-10.1); CREATININE 0.8 mg/dL (0.6-1.0); GFR 70.7; POTASSIUM 3.6 mmol/L (3.5-5.1)
--- NOTE | 2019-02-13 17:57 | PHYS DOC ---
Past Medical History Past Medical History: Cancer, COPD, Other Additional Past Medical Histor: Crohns, LUNG CA (DEANNA SOLOMON APRN) Past Surgical History: No Surgical History (DEANNA SOLOMON APRN) Smoking: Cigarettes, Less than 1pk/day Alcohol Use: Occasionally Drug Use: None (DEANNA SOLOMON APRN) Adult General Chief Complaint Chief Complaint: WEAKNESS/GENERALIZED HPI HPI Patient is a 73 year old female presents with generalized weakness and shakiness for 2 days. Denies any other symptoms. Denies pain. Has not tried any interventions prior to arrival. (DEANNA SOLOMON APRN) Review of Systems Review of Systems Constitutional: Denies fever or chills [] Eyes: Denies change in visual acuity, redness, or eye pain [] HENT: Denies nasal congestion or sore throat [] Respiratory: Denies cough but reports chronic shortness of breath (hx of lung cancer). Cardiovascular: No additional information not addressed in HPI [] GI: Denies abdominal pain, nausea, vomiting, bloody stools or diarrhea [] : Denies dysuria or hematuria [] Musculoskeletal: Denies back pain or joint pain [] Integument: Denies rash or skin lesions [] Neurologic: Denies headache, focal weakness or sensory changes [] Endocrine: Denies polyuria or polydipsia [] Complete systems were reviewed and found to be within normal limits, except as documented in this note. (DEANNA SOLOMON APRN) Current Medications Current Medications Current Medications Medications (Trade) Dose Ordered Sig/Yadiel Start Time Stop Time Status Last Admin Dose Admin Sodium Chloride 1,000 ml @ 1,000 mls/hr 1X ONCE 02/13/19 18:00 02/13/19 18:59 DC 02/13/19 18:15 1,000 MLS/HR (DEANNA HAYNES DO) Allergies Allergies Allergies Coded Allergies Type Severity Reaction Last Updated Verified tomato Allergy Severe 01/08/19 Yes Penicillins Allergy Intermediate Unknown 01/08/19 Yes (DEANNA HAYNES DO) Physical Exam Physical Exam Constitutional: Well developed, well nourished, no acute distress, non-toxic appearance. [] HENT: Normocephalic, atraumatic, bilateral external ears normal, oropharynx moist, no oral exudates, nose normal. [] Eyes: PERRLA, EOMI, conjunctiva normal, no discharge. [] Neck: Normal range of motion, no tenderness, supple, no stridor. [] Cardiovascular:Heart rate regular rhythm, no murmur [] Lungs & Thorax: Bilateral breath sounds clear to auscultation [] Abdomen: Bowel sounds normal, soft, no tenderness, no masses, no pulsatile masses. [] Skin: Warm, dry, no erythema, no rash. [] Back: No tenderness, no CVA tenderness. [] Extremities: No tenderness, no cyanosis, no clubbing, ROM intact, no edema. [] Neurologic: Alert and oriented X 3, normal motor function, normal sensory function, no focal deficits noted. [] Psychologic: Affect normal, judgement normal, mood normal. [] (DEANNA SOLOMON APRN) Current Patient Data Vital Signs Vital Signs Date Time Temp Pulse Resp B/P (MAP) Pulse Ox O2 Delivery O2 Flow Rate FiO2 02/13/19 19:11 86 16 98 02/13/19 16:48 97.9 129/93 (105) Room Air 97.9 (HAYNESDEANNA KINGSTON DO) Lab Values Laboratory Tests Test 02/13/19 17:05 02/13/19 17:25 White Blood Count 8.0 x10^3/uL (4.0-11.0) Red Blood Count 4.15 x10^6/uL (3.50-5.40) Hemoglobin 13.6 g/dL (12.0-15.5) Hematocrit 40.4 % (36.0-47.0) Mean Corpuscular Volume 98 fL (79-100) Mean Corpuscular Hemoglobin 33 pg (25-35) Mean Corpuscular Hemoglobin Concent 34 g/dL (31-37) Red Cell Distribution Width 14.4 % (11.5-14.5) Platelet Count 399 x10^3/uL (140-400) Neutrophils (%) (Auto) 74 % (31-73) H Lymphocytes (%) (Auto) 16 % (24-48) L Monocytes (%) (Auto) 9 % (0-9) Eosinophils (%) (Auto) 0 % (0-3) Basophils (%) (Auto) 1 % (0-3) Neutrophils # (Auto) 5.9 x10^3uL (1.8-7.7) Lymphocytes # (Auto) 1.3 x10^3/uL (1.0-4.8) Monocytes # (Auto) 0.7 x10^3/uL (0.0-1.1) Eosinophils # (Auto) 0.0 x10^3/uL (0.0-0.7) Basophils # (Auto) 0.0 x10^3/uL (0.0-0.2) Sodium Level 140 mmol/L (136-145) Potassium Level 3.6 mmol/L (3.5-5.1) Chloride Level 101 mmol/L (98-107) Carbon Dioxide Level 24 mmol/L (21-32) Anion Gap 15 (6-14) H Blood Urea Nitrogen 9 mg/dL (7-20) Creatinine 0.8 mg/dL (0.6-1.0) Estimated GFR (Cockcroft-Gault) 70.7 BUN/Creatinine Ratio 11 (6-20) Glucose Level 108 mg/dL (70-99) H Lactic Acid Level 1.7 mmol/L (0.4-2.0) Calcium Level 9.3 mg/dL (8.5-10.1) Total Bilirubin 0.5 mg/dL (0.2-1.0) Aspartate Amino Transferase (AST) 17 U/L (15-37) Alanine Aminotransferase (ALT) 16 U/L (14-59) Alkaline Phosphatase 60 U/L (46-116) Total Protein 7.5 g/dL (6.4-8.2) Albumin 4.1 g/dL (3.4-5.0) Albumin/Globulin Ratio 1.2 (1.0-1.7) Urine Collection Type U cath Urine Color Yellow Urine Clarity Clear Urine pH 6.0 Urine Specific [place] 1.010 Urine Protein Negative mg/dL (NEG-TRACE) Urine Glucose (UA) Negative mg/dL (NEG) Urine Ketones (Stick) 15 mg/dL (NEG) Urine Blood Negative (NEG) Urine Nitrite Negative (NEG) Urine Bilirubin Negative (NEG) Urine Urobilinogen Dipstick 0.2 mg/dL (0.2 mg/dL) Urine Leukocyte Esterase Negative (NEG) Urine RBC Occ /HPF (0-2) Urine WBC 0 /HPF (0-4) Urine Squamous Epithelial Cells Few /LPF Urine Bacteria 0 /HPF (0-FEW) Urine Hyaline Casts Few /HPF Urine Mucus Mod /LPF Laboratory Tests 02/13/19 17:05 Laboratory Tests 02/13/19 17:05 (DEANNA HAYNES DO) EKG EKG [] (DEANNA SOLOMON APRN) Radiology/Procedures Radiology/Procedures []PATIENT: CRUZ NICKERSONOUNT: [id number]#: [id number] : 1945 LOCATION: ER AGE: 73 SEX: F EXAM STATUS: REG ER ORD. PHYSICIAN: DEANNA SOLOMON APRN REASON: Short of breath today PROCEDURE: PORTABLE CHEST 1V AP portable chest radiograph 02/13/2019 Clinical History: Shortness of breath since earlier today. Lung cancer. An AP erect portable digital radiograph of the chest was obtained. Comparison study is dated 01/08/2019. The cardiac silhouette is normal in size. The thoracic aorta is mildly tortuous. Emphysematous changes are seen involving both lungs. Increased opacity is seen involving the right upper lobe consistent with the patient's history of lung cancer. This has not significantly changed since the previous study. No acute pulmonary infiltrate is seen. No pneumothorax or pleural effusion is noted. The osseous structures are unchanged. Impression: No acute abnormality is seen. Electronically signed by: Jamarcus Cardozo MD (02/13/2019 6:21 PM) [facility] (DEANNA SOLOMON APRN) Course & Med Decision Making Course & Med Decision Making Pertinent Labs and Imaging studies reviewed. (See chart for details) Will check labs, chest xray, and give IV fluids. Patient is agreeable. Imaging and labs is unremarkable. Will d/c patient home. Patient states she feels better after fluids. Appears to be dehydration. (DEANNA SOLOMON APRN) Dragon Disclaimer Dragon Disclaimer This electronic medical record was generated, in whole or in part, using a voice recognition dictation system. (DEANNA SOLOMON APRN) Departure Departure Impression: Primary Impression: Generalized weakness Disposition: 01 HOME, SELF-CARE Condition: STABLE Referrals: CAYETANO SHABAZZ DO (PCP) Patient Instructions: Weakness, [id number] Additional Instructions: Please follow up with your Primary Care Doctor tomorrow. Return to ER as needed. Drink plenty of fluids. Attending Signature Attending Signature I have reviewed the PA/CARD FOLDER's note and plan of care. I was available for consultation as needed during the patient's visit in the emergency department. I agree with the clinical impression, plan, and disposition. (DEANNA HAYNES DO) DEANNA SOLOMON APRN February 13, 2019 17:57 DEANNA AHYNES DO February 14, 2019 11:57
[2019-02-13] MEDS ORDERED: IV NORMAL SALINE 1000ML BAG 1,000 ML IV ONE (18:00)
[2019-02-13 18:03] LABS: ALBUMIN 4.1 g/dL (3.4-5.0); ALBUMIN/GLOBULIN RATIO 1.2 (1.0-1.7); TOTAL BILIRUBIN 0.5 mg/dL (0.2-1.0); TOTAL PROTEIN 7.5 g/dL (6.4-8.2)
[2019-02-13 18:06] LABS: BILIRUBIN,URINE NEGATIVE (NEG); CLARITY,URINE CLEAR; COLOR,URINE YELLOW; NITRITE,URINE NEGATIVE (NEG); PROTEIN,URINE NEGATIVE (NEG-TRACE); UROBILINOGEN,URINE 0.2 mg/dL (0.2 mg/dL)
[2019-02-13 18:11] LABS: BACTERIA,URINE 0 /HPF (0-FEW); HYALINE CASTS, URINE FEW /HPF; RBC,URINE OCC /HPF (0-2); SQUAMOUS EPITHELIAL CELL,UR FEW /LPF; WBC,URINE 0 /HPF (0-4)
--- NOTE | 2019-02-13 18:25 | RAD ---
AP portable chest radiograph 02/13/2019 Clinical History: Shortness of breath since earlier today. Lung cancer. An AP erect portable digital radiograph of the chest was obtained. Comparison study is dated 01/08/2019. The cardiac silhouette is normal in size. The thoracic aorta is mildly tortuous. Emphysematous changes are seen involving both lungs. Increased opacity is seen involving the right upper lobe consistent with the patient's history of lung cancer. This has not significantly changed since the previous study. No acute pulmonary infiltrate is seen. No pneumothorax or pleural effusion is noted. The osseous structures are unchanged. Impression: No acute abnormality is seen. Electronically signed by: Jamarcus Cardozo MD (02/13/2019 6:21 PM) [facility]
[2019-02-13 19:11] VITALS: BP 126/81
--- NOTE | 2019-02-14 10:27 | EKG ---
[facility] [address] [place] [address] Test Date: 2019-02-13 Test Time: 16:49:27 Pat Name: CRUZ NICKERSON Department: Room: Gender: F [employer]over: : 1945 Requested By: DEANNA SOLOMON Order Number: [id number] Reading MD: Roney Hooper Measurements Intervals [facility] Rate: 82 P: 90 IN: 154 QRS: 85 QRSD: 78 T: 53 QT: 366 QTc: 430 Interpretive Statements SINUS RHYTHM ATRIAL PREMATURE COMPLEX(ES) Electronically Signed On 03-07-2019 12:22:54 CDT by Roney Hooper
== END 2019-02-13 19:39 | disposition home or self-care (01) ==
LOC: ER 16:29
DX: R53.1 Weakness (principal); R25.1 Tremor, unspecified; J44.9 Chronic obstructive pulmonary disease, unspecified; F17.210 Nicotine dependence, cigarettes, uncomplicated; Z88.0 Allergy status to penicillin; Z91.018 Allergy to other foods
CPT/HCPCS: 36415; 71045; 80053; 81001; 83605; 85025; 87040; 93005; 99285; J7030

== ENCOUNTER → 2019-04-17 | Outpatient (CLI) | payer OTHER ==
[~2019-04-17] MED LIST changes: +IOHEXOL 300 MG/ML 100ML VIAL. IV ONE
--- NOTE | 2019-04-17 13:04 | RAD ---
PQRS Compliance statement: One or more of the following individualized dose reduction techniques were utilized for this examination: 1. Automated exposure control. 2. Adjustment of the mA and/or kV according to patient size. 3. Use of iterative reconstruction technique. Indication:Lung cancer follow-up. TECHNIQUE: CT chest with IV contrast with multiplanar reformats. COMPARISON: 10/16/2018. FINDINGS: Heart is normal in size. No pericardial or pleural effusion. Mild atherosclerotic plaque in the thoracic aorta. No enlarged axillary, mediastinal or hilar adenopathy. Stable consolidation is seen in the medial aspect of the right upper lobe. Mild scarring seen in the left lung apex. Otherwise, lungs are clear. Visualized sections through the liver, spleen, gallbladder, pancreas within normal limits. Right adrenal mass is seen measuring 3.3 x 2.1 cm. Left adrenal gland within normal limits. Visualized upper kidneys are within normal limits. No suspicious bony lesion. IMPRESSION: 1. Stable consolidation in the right upper lobe be secondary to endobronchial obstruction or extrinsic compression from a mass leading to postobstructive atelectasis or pneumonia. 2. New right adrenal metastasis. Electronically signed by: Jc Phan DO (04/17/2019 1:01 PM) [facility]
== END | disposition home or self-care (01) ==
LOC: CT 11:34
PROVIDERS: ATTEND Radiology Radiation Oncology
DX: C79.71 Secondary malignant neoplasm of right adrenal gland (principal); C34.90 Malignant neoplasm of unspecified part of unspecified bronchus or lung; I70.0 Atherosclerosis of aorta; J98.4 Other disorders of lung
CPT/HCPCS: 71260; Q9967

== ENCOUNTER → 2019-05-01 | Outpatient (CLI) | payer OTHER ==
[~2019-05-01] MED LIST changes: -IOHEXOL 300 MG/ML 100ML VIAL. IV ONE
--- NOTE | 2019-05-01 16:01 | RAD ---
PET/CT imaging from the skull through the midthigh History: Lung cancer staging. Follow-up study. COMPARISON: December 13, 2017. Technique: PET examination was performed from the skull base to the proximal thighs after intravenous administration of 13.6 mCi Fluorine [address] scan was performed for the purposes of localization and attenuation, not for primary diagnosis. Blood glucose level at time of injection was 101 mg/dl. PQRS Compliance Statement: One or more of the following individualized dose reduction techniques were utilized for this examination: 1. Automated exposure control 2. Adjustment of the mA and/or kV according to patient size 3. Use of iterative reconstruction technique Findings: HEAD AND NECK: No hypermetabolic activity is seen. No enlarged cervical lymphadenopathy is evident. CHEST: Right upper lobe and right middle lobe are completely collapsed. There is hypermetabolic activity within these collapsed segments measuring max SUV of 5.0 within the right upper lobe and max SUV of 5.0 within the right middle lobe. The mass abutting the occluded right upper lobe bronchus mentioned previous study is difficult to differentiate from collapsed lung due to the lack of contrast. Therefore, size measurement is difficult. However, there is persistent hypermetabolic activity present here with a max SUV of 6.6. On the previous study, it measured maximum SUV of 17. There is some mild groundglass lung infiltrate now present within the posterior superior aspect of the hyperexpanded right lower lobe seen within the upper chest. There is associated pleural thickening. This is not hypermetabolic. This may be related to radiation treatment. There is some hypermetabolic activity measuring max SUV of 2.8 involving the upper right posterior medial pleural space with some mild pleural thickening here. This is seen at the level of the bhanu. This is seen on series 3 and image 74. No significant soft tissue mass is seen near. Early pleural metastasis is possible however. ABDOMEN AND PELVIS: There is a hypermetabolic mass with a max SUV of 4.8 involving the right adrenal gland. This measures 4.9 cm in size. This is new. No other hypermetabolic activity is evident. MUSCULOSKELETAL: No hypermetabolic activity is seen. No lytic process is seen. IMPRESSION: Persistent complete collapse of the right upper lobe and right middle lobe with hyperexpansion of the right lower lobe. The previously seen mass abutting the occluded right upper lobe bronchus is difficult to differentiate from collapsed lung in today's study without contrast. Max SUV measures 6.6 today. It measured 17 on the previous study which is indicative of treatment response. There is some hypermetabolic activity within the collapsed right upper lobe and right middle lobe which may represent postobstructive inflammation or even pneumonia although metastatic disease involving these collapsed segments is possible as well. This was not seen previously. New finding of right adrenal metastasis. Possible early pleural metastasis of the upper right posterior medial pleural space. Another consideration includes pleural thickening and inflammation secondary to radiation therapy.
== END | disposition home or self-care (01) ==
LOC: PETSC 09:25
PROVIDERS: ATTEND Radiology Radiation Oncology
DX: C79.71 Secondary malignant neoplasm of right adrenal gland (principal); C34.90 Malignant neoplasm of unspecified part of unspecified bronchus or lung; J98.19 Other pulmonary collapse; J98.4 Other disorders of lung
CPT/HCPCS: 78815; A9552

== ENCOUNTER → 2019-07-31 | Outpatient (CLI) | payer OTHER ==
[~2019-07-31] MED LIST changes: +ALPR0.25 PO; +CONTRAST GIVEN. MC PRN; +IOHEXOL 300 MG/ML 100ML VIAL. IV ONE; +OMEP40CA45 PO; -OMEP40CA5 PO
--- NOTE | 2019-07-31 11:23 | RAD ---
CT CHEST W/CONTRAST Indication: Lung cancer Technique: Postcontrast CT imaging was performed of the chest, multiplanar reconstruction images submitted. One or more of the following individualized dose reduction techniques were utilized for this examination: 1. Automated exposure control 2. Adjustment of the mA and/or kV according to patient size 3. Use of iterative reconstruction technique. Comparison: PET/CT May 01, 2019; chest CT April 17, 2019 Findings: There is again right upper and right middle lobe collapse with abnormal density abutting along the right mediastinal border, superior extent to the apex. There are multiple new small foci of noncalcified nodularity of the aerated parenchyma on the right. Largest nodule image 39 series 2 measures about 0.7 cm, also 0.7 cm nodule more medially and inferiorly image 51. There are also new multiple noncalcified nodules of the left hemithorax, largest nodule of the severe left lower lobe near the fissure about 0.7 cm image 15. There is no pleural or pericardial fluid or pneumothorax. Thoracic aortic caliber is similar, scattered plaque. There is increased mediastinal lymphadenopathy. For example right pretracheal node image 17 measures about 1.3 cm short axis dimension versus previously 0.7 cm. 1 cm short axis node of the anterior left mediastinum image 15 is new. Right pretracheal node 1.1 cm short axis dimension image 21 previously measured 0.5 cm. 1.1 cm short axis dimension superior right mediastinal node image 9 is new. Subcarinal caterina mass about 1.5 cm short axis dimension is much larger, previously about 0.6 cm short axis dimension. There are other more prominent nodes present. Note is made of retroaortic left renal vein. Previously seen right adrenal mass is smaller, now about 2.6 cm AP by 1.4 cm transverse versus previously about 3.5 cm AP by 3 cm transverse. There is suspected left adrenal nodule about 1.2 cm more apparent on this exam. Thoracic vertebral body stature is overall maintained. IMPRESSION: 1. There are multiple new pulmonary nodules bilaterally and increased mediastinal lymphadenopathy, evidence of progression of metastatic disease. There is again right middle and right upper lobe collapse with density abutting the right mediastinal border anteriorly. 2. Right adrenal mass is smaller, small left adrenal nodule somewhat more apparent. Electronically signed by: Richar Bell MD (07/31/2019 11:20 AM) [id number]
== END | disposition home or self-care (01) ==
LOC: CT 09:35
PROVIDERS: ATTEND Radiology Radiation Oncology
DX: C34.11 Malignant neoplasm of upper lobe, right bronchus or lung (principal); C79.71 Secondary malignant neoplasm of right adrenal gland; N28.89 Other specified disorders of kidney and ureter; J44.9 Chronic obstructive pulmonary disease, unspecified; J98.19 Other pulmonary collapse; R91.8 Other nonspecific abnormal finding of lung field; R59.0 Localized enlarged lymph nodes
CPT/HCPCS: 71260; Q9967